=== PATIENT | female | born 1995 | race Caucasian/White ===

== ENCOUNTER → 2017-06-12 | Outpatient (CLI) | payer MEDICAID ==
--- NOTE | 2017-06-12 16:53 | Diagnostic Imaging Report ---
INDICATION: Size and dates. TECHNIQUE: OB sonography performed with transabdominal views. COMPARISON: There is no prior study for comparison. FINDINGS: Single live intrauterine fetus is seen measuring 10 weeks 5 days by crown-rump length with heart rate of 181 beats per minute. Fetus is in variable presentation. Amniotic fluid appears qualitatively normal. The gestational sac shape is normal. heart rate is 181 beats per minute. There is no overt subchorionic bleed. Maternal ovaries could not be visualized. There is no free fluid. IMPRESSION: Single live intrauterine fetus measuring at 10 weeks 5 days in size with sonographic EDC of 01/03/2018. No detectable abnormalities. Recommend followup later in for full anatomical survey. Dictated by: Dictated on workstation # [id number]
== END ==
LOC: RAD 15:26
PROVIDERS: ATTEND Family Medicine
DX: Z34.01 Encounter for supervision of normal first pregnancy, first trimester (principal); Z3A.10 10 weeks gestation of pregnancy
CPT/HCPCS: 76801

== ENCOUNTER → 2017-08-07 | Outpatient (CLI) | payer MEDICAID ==
--- NOTE | 2017-08-07 17:20 | Diagnostic Imaging Report ---
INDICATION: Second trimester , survey. TECHNIQUE: Multiple real-time grayscale images were obtained over the gravid uterus. COMPARISON: 06/12/2017 FINDINGS: A single live intrauterine fetus is seen measuring 19 weeks 2 days in size with heart rate of 156 beats per minute. This is about 4 days larger than expected from original dates but within variation. Sonographic EDC is 12/30/17. The fetus is in transverse presentation. Amniotic fluid appears qualitatively normal. Gestational sac had a normal contour. There is no subchorionic bleed. Placenta is posterior with no evidence of previa. survey including kidneys, bladder, stomach, and intracranial structures are unremarkable. Cord insertion was unremarkable. The four-chamber heart view with three-vessel cord and spine images were not optimal secondary to positioning. Biometrical measurements are as follows: Biparietal 4.5 cm, age 19 weeks 4 days. Head circumference 16.0 cm, age 18 weeks 6 days. Abdominal circumference 14.7 cm, age 20 weeks 0 days. Femur length 2.8 cm, age 18 weeks 3 days. Sonographic estimate age: 19 weeks 2 days. Sonographic estimated date of delivery: 12/30/17. Estimated Weight: 281 gm (+/- 41 gm). LMP percentile: 76%. heart rate: 156 beats per minute. number: 1 of 1. IMPRESSION: Single live intrauterine fetus as described above with normal interval growth compared to the prior study. survey showed no detectable abnormalities although there was some limitation as above, with the four-chamber heart view and three-vessel cord and spine not well seen. Consider limited followup study as clinically warranted. Dictated by: Dictated on workstation # [id number]
== END ==
LOC: RAD 15:27
PROVIDERS: ATTEND Family Medicine
DX: Z36.89 Encounter for other specified antenatal screening (principal); Z3A.19 19 weeks gestation of pregnancy
CPT/HCPCS: 76805

== ENCOUNTER → 2017-10-02 | Outpatient (CLI) | payer MEDICAID ==
--- NOTE | 2017-10-02 18:34 | Diagnostic Imaging Report ---
INDICATION: Followup spine, three-vessel cord, and four-chamber heart. TECHNIQUE: Multiple real-time grayscale images were obtained over the gravid uterus. COMPARISON: 08/07/2017. FINDINGS: There is a single live fetus in a cephalic presentation. Placenta is posterior. heart rate was recorded at 152 beats per minute. Amniotic fluid volume is normal. survey demonstrates four-chamber heart to be unremarkable. There is a three-vessel cord. spine is unremarkable. IMPRESSION: Unremarkable followup obstetrical ultrasound. spine, three-vessel cord, and four-chamber heart are unremarkable on today's exam. Dictated by: Dictated on workstation # [id number]
== END ==
LOC: RAD 13:03
PROVIDERS: ATTEND Family Medicine
DX: Z36.89 Encounter for other specified antenatal screening (principal); Z3A.00 Weeks of gestation of pregnancy not specified
CPT/HCPCS: 76816

== ENCOUNTER → 2017-11-27 | Outpatient (CLI) | payer MEDICAID ==
--- NOTE | 2017-11-27 15:54 | Diagnostic Imaging Report ---
INDICATION: Low fundal height for dates. TECHNIQUE: Multiple real-time grayscale images were obtained over the gravid uterus. COMPARISON: 10/02/2017. FINDINGS: There is a single live fetus in a cephalic presentation. heart rate was recorded at 149 beats per minute. Placenta is posterior. Amniotic fluid volume is normal. No gross abnormality is seen. Biometrical measurements are as follows: Biparietal 8.84 cm, age 35 weeks 6 days. Head circumference 32.02 cm, age 36 weeks 1 days. Abdominal circumference 32.07 cm, age 36 weeks 0 days. Femur length 6.6 cm, age 34 weeks 0 days. Sonographic estimate age: 35 weeks 4 days. Sonographic estimated date of delivery: 12/28/2017. Estimated Weight: 2683 gm (+/- 392 gm). LMP percentile: 71%. heart rate: 149 beats per minute. number: 1 of 1. IMPRESSION: Single live IUP of approximately 35-36 weeks gestational age showing normal interval growth when compared with examination from 10/02/2017. Dictated by: Dictated on workstation # [id number]
== END ==
LOC: RAD 13:48
PROVIDERS: ATTEND Family Medicine
DX: O26.843 Uterine size-date discrepancy, third trimester (principal); Z3A.35 35 weeks gestation of pregnancy
CPT/HCPCS: 76816

== ENCOUNTER 2018-01-02 05:31 | Inpatient (IN) | payer MEDICAID ==
[~2018-01-02] VITALS: Ht 165.1 cm; Wt 58.7 kg
[2018-01-02] VITALS (54 sets, daily range): BP systolic 90–159; BP diastolic 50–86
[2018-01-02] MEDS ORDERED: FLU QUADRIvalent (5+ YOA) 2018-2019 (AFLURIA) 0.5 ML IM ONE (07:15)
[2018-01-02] MEDS ORDERED: fentaNYL INJECTION 100 MCG/2 ML AMP ONE ×2 (07:45→08:32)
[2018-01-02] MEDS ORDERED: MINERAL OIL CONCENTRATE 99.9% 15 ML UDC TOP PRN (07:45)
[2018-01-02] MEDS ORDERED: D5 LR IV SOLUTION 1,000 ML IV ONE (07:46)
[2018-01-02] MEDS ORDERED: LACTATED RINGERS 1,000 ML IV ONE ×2 (07:46→09:08)
[2018-01-02] MEDS ORDERED: fentaNYL INJECTION 100 MCG/2 ML AMP IVP ONE (08:00)
[2018-01-02 08:12] LABS: BASOPHILS % (AUTO) 0 % (0-10); EOSINOPHILS % (AUTO) 0 % (0-10); HEMATOCRIT 39 % (35-52); HEMOGLOBIN 13.4 G/DL (11.5-16.0); LYMPHOCYTES # (AUTO) 2.5 X 10^3 (1.0-4.0); LYMPHOCYTES % (AUTO) 17 % (12-44); MEAN CORPUSCULAR HEMOGLOBIN 31 PG (25-34); MEAN CORPUSCULAR HGB CONC 34 G/DL (32-36); MEAN CORPUSCULAR VOLUME 91 FL (80-99); MEAN PLATELET VOLUME 10.3 FL (7.4-10.4); MONOCYTES # (AUTO) 0.9 X 10^3 (0.0-1.0); MONOCYTES % (AUTO) 6 % (0-12); NEUTROPHILS # (AUTO) 11.2 X 10^3 (1.8-7.8); NEUTROPHILS % (AUTO) 77 % (42-75); PLATELET COUNT 354 10^3/uL (130-400); RED BLOOD COUNT 4.33 10^6/uL (4.35-5.85); RED CELL DISTRIBUTION WIDTH 14.4 % (10.0-14.5); WHITE BLOOD COUNT 14.6 10^3/uL (4.3-11.0)
[2018-01-02] MEDS: VANCOMYCIN INJECTION 1,000 MG in NS (IVPB) 250 ML IV SCH ×2 (08:18→20:10)
[2018-01-02] MEDS ORDERED: BUPIVACAINE 0.25% 30 ML (SENSORCAINE) VIAL ONE (08:32)
[2018-01-02] MEDS ORDERED: SUFENTA 0.6MCG/ML BUPIVA 0.125 100 ML ONE (08:32)
[2018-01-02 08:48] LABS: LYMPHOCYTES % (MANUAL) 11 %; MONOCYTES % (MANUAL) 8 %; NEUTROPHILS % (MANUAL) 81 %; RBC MORPH NORMAL
[2018-01-02] MEDS: D5 LR IV SOLUTION 1,000 ML IV SCH ×2 (08:59→15:55)
[2018-01-02] MEDS: EPIDURAL (SUFENTA 0.6MCG/ML BUPIVA 0.125%) 100 ML BAG EPI SCH ×2 (09:00→15:55)
[2018-01-02] MEDS ORDERED: ONDANSETRON 4 MG/2 ML (SDV) Z0FRAN ONE (09:06)
[2018-01-02] MEDS ORDERED: CATHETER FLUSH 10 ML SYR IV PRN (09:15)
[2018-01-02] MEDS ORDERED: NALOXONE 0.4 MG/ML 1 ML (NARCAN) VIAL IV PRN (09:15)
--- OUTSIDE RECORDS SUMMARY | 2018-01-02 13:30 | XMS REPORT ---
Author Author SERGIO YOMI [facility] Address [address] [place] [address] Care Team Providers Care Electrical And Electronic Assembler Name Role Phone SERGIOCHARITYYOMI Unavailable PROBLEMS Type Condition ICD9-CM Code EWC87-PT Code Onset Dates Condition Status SNOMED Code Problem care, first in third trimester Z34.03 Active 148238023 Problem Major depressive disorder, single episode, unspecified F32.9 Active 72422804 Problem Generalized anxiety disorder F41.1 Active 67072052 Problem GBS bacteriuria R82.71 Active 35503268 ALLERGIES No Information ENCOUNTERS Encounter Location Date Diagnosis [place] [address] [address] Dec, [place] [address] [address]892 Dec, [address] [address] Dec, care, first in third trimester Z34.03 and 38 weeks gestation of Z3A.38 [place] [address] [place] [id number] [place] [address] 24529- 7867 Nov, Third trimester Z34.93 ; Vaginal candidiasis B37.3 ; 37 weeks gestation of Z3A.37 ; Acute vaginitis N76.0 and Infection of other part of genital tract in , third trimester O23.593 [place] [address] [address] 17 Nov, 2017 Third trimester Z34.93 and 36 weeks gestation of Z3A.36 [place] [address] [address] Nov, [place] [address] [place] [id number] [place] [address] 65393- 1940 Oct, Third trimester Z34.93 ; Fundal height low for dates in third trimester O26.843 and 33 weeks gestation of Z3A.33 [place] [address] [place] [id number] [place] [address] 31287- 1559 Oct, Hyperemesis R11.10 [place] [address] [address]- 9761 Oct, Hyperemesis R11.10 [place] [address] [place] [id number] [place] [address] 39540- 7244 Oct, [place] [address] [place] [id number] [place] [address] 19170- 3211 Oct, 30 weeks gestation of Z3A.30 ; care, first in third trimester Z34.03 and Encounter for immunization Z23 [place] [address] [place] [id number] [place] [address] 83640- 4220 Sep, [place] [address] [place] [id number] [place] [address] 36163- 3710 Sep, Second trimester Z34.92 and 26 weeks gestation of Z3A.26 [facility] [address] [place] [id number] [place] [address]0172 Aug, Vaginal itching N89.8 [place] [address] [place] [id number] [place] [address] 44757- 7775 Aug, care, first in second trimester Z34.02 ; 22 weeks gestation of Z3A.22 and Evaluate anatomy not seen on prior sonogram Z04.8 [place] [address] [place] [id number] [place] [address] 62735- 0278 July, Generalized anxiety disorder F41.1 and Major depressive disorder, single episode, unspecified F32.9 [place] [address] [address]- [address] July, care, first in second trimester Z34.02 and 17 weeks gestation of Z3A.17 [place] [address] [place] [id number] [place] [address] 65671- 6305 Jun, Generalized anxiety disorder F41.1 [place] [address] [place] [id number] [place] [address] 01960- 0343 18 Jun, 2017 Second trimester Z34.92 ; 14 weeks gestation of Z3A.14 and Nausea and vomiting during O21.9 [place] [address] [place] [id number] [place] [address] 32784- 9349 Jun, [place] [address] [place] [id number] [place] [address] 42446- 6893 Jun, Generalized anxiety disorder F41.1 and Major depressive disorder, single episode, unspecified F32.9 [place] [address] [place] [id number] [place] [address] 18894- 3288 Jun, Generalized anxiety disorder F41.1 and Major depressive disorder, single episode, unspecified F32.9 [place] [address] [place] [id number] [place] [address] 67730- 6186 Jun, 13 weeks gestation of Z3A.13 ; Itching L29.9 and Encounter for care in second trimester of first Z34.02 [place] [address] [place] [id number] [place] [address] 80362- 5979 Jun, [place] [address] [place] [id number] [place] [address] 64056- 4943 May, Generalized anxiety disorder F41.1 ; Major depressive disorder, single episode, unspecified F32.9 ; Other mental disorders complicating , first trimester O99.341 and Adjustment disorder with mixed anxiety and depressed mood F43.23 [place] [address] [place] [address] 93018- 8422 May, care, first in first trimester Z34.01 ; 10 weeks gestation of Z3A.10 ; Glucosuria R81 and Vaginal candidiasis B37.3 [facility] [address] [id number] [address] Apr, [facility] [address] [facility] [id number] [address] Apr, [facility] [address] [facility] [id number], [place] [address] Apr, Encounter for test Z32.00 [facility] [address] [facility] [id number], [place] [address] Apr, IMMUNIZATIONS No Known Immunizations SOCIAL HISTORY Never Assessed REASON FOR VISIT 1 week f/u, Cervix check -- nasim palafox PLAN OF CARE Activity Details Follow Up 1 Week Reason: Pending Test UA OB DIP (IN HOUSE) VITAL SIGNS Height 66 in 2017-12-16 Weight 129.0 lbs 2017-12-16 Temperature 97.2 degrees Fahrenheit 2017-12-16 Heart Rate 80 bpm 2017-12-16 Respiratory Rate 20 2017-12-16 BMI 20.821 kg/m2 2017-12-16 Blood pressure systolic 110 mmHg 2017-12-16 Blood pressure diastolic 70 mmHg 2017-12-16 MEDICATIONS Medication Instructions Dosage Frequency Start Date End Date Duration Status Clotrimazole-7 1 % Vaginal Once a day 1 application at bedtime 24h Nov, Dec, 7 day(s) Active Ranitidine HCl 150 MG Orally twice a day 1 tablet 12h Oct, 30 day(s) Active Active RESULTS No Results PROCEDURES Procedure Date Ordered Result Body Site URINE-NO MICRO Dec 16, 2017 LAB NOT BILLED BY [facility] Dec 16, 2017 Bacterial Vaginosis In House Dec 16, 2017 INSTRUCTIONS MEDICATIONS ADMINISTERED No Known Medications MEDICAL (GENERAL) HISTORY Type Description Date Surgical History tonsillectomy
--- OUTSIDE RECORDS SUMMARY | 2018-01-02 13:30 | XMS REPORT ---
Author Author SERGIO YOMI [facility] Address [address] [place] [address] Care Team Providers Care Spar Machine Operator Helper Name Role Phone SERGIOCHARITY MORAHANY Unavailable PROBLEMS Type Condition ICD9-CM Code AEC70-XV Code Onset Dates Condition Status SNOMED Code Problem care, first in third trimester Z34.03 Active 636026272 Problem Major depressive disorder, single episode, unspecified F32.9 Active 41303912 Problem Generalized anxiety disorder F41.1 Active 77528997 Problem GBS bacteriuria R82.71 Active 83447633 ALLERGIES No Information ENCOUNTERS Encounter Location Date Diagnosis [place] [address] [place] [id number] [place] [address] Dec, [place] [address] [place] [id number] [place] [address] 06637- 0202 Dec, [place] [address] [place] [id number] [place] [address] 97687- 9561 Nov, Third trimester Z34.93 ; Vaginal candidiasis B37.3 ; 37 weeks gestation of Z3A.37 ; Acute vaginitis N76.0 and Infection of other part of genital tract in , third trimester O23.593 [place] [address] [place] [address] 49336- 6878 17 Nov, 2017 Third trimester Z34.93 and 36 weeks gestation of Z3A.36 [place] [address] [place] [id number] [place] [address] 79333- 7749 Nov, [place] [address] [place] [id number] [place] [address] 80973- 8868 Oct, Third trimester Z34.93 ; Fundal height low for dates in third trimester O26.843 and 33 weeks gestation of Z3A.33 [place] [address] [place] [address] 29217- 4029 Oct, Hyperemesis R11.10 [place] [address] [place] [id number] [place] [address] 81023- 3243 Oct, Hyperemesis R11.10 [place] [address] [place] [id number] [place] [address] 96888- 1087 Oct, [place] [address] [place] [id number] [place] [address] 56006- 5053 Oct, 30 weeks gestation of Z3A.30 ; care, first in third trimester Z34.03 and Encounter for immunization Z23 [place] [address] [place] [id number] [place] [address] 36657- 8765 Sep, [place] [address] [place] [id number] [place] [address] 64839- 6389 Sep, Second trimester Z34.92 and 26 weeks gestation of Z3A.26 [facility] [address] [place] [id number] [place] [address] 57845 -5756 Aug, Vaginal itching N89.8 [place] [address] [place] [id number] [place] [address] 48260- 3900 12 Aug, 2017 care, first in second trimester Z34.02 ; 22 weeks gestation of Z3A.22 and Evaluate anatomy not seen on prior sonogram Z04.8 [place] [address] [place] [id number] [place] [address] 86676- 3090 July, Generalized anxiety disorder F41.1 and Major depressive disorder, single episode, unspecified F32.9 [place] [address] [place] [id number] [place] [address] 79714- 6604 July, care, first in second trimester Z34.02 and 17 weeks gestation of Z3A.17 [place] [address] [address]- 6857 Jun, Generalized anxiety disorder F41.1 [place] [address] [place] [address] 79830- 5486 18 Jun, 2017 Second trimester Z34.92 ; 14 weeks gestation of Z3A.14 and Nausea and vomiting during O21.9 [place] [address] [place] [address] 86724- 1422 17 Jun, 2017 [place] [address] [place] [id number] [place] [address] 19965- 3932 Jun, Generalized anxiety disorder F41.1 and Major depressive disorder, single episode, unspecified F32.9 [place] [address] [place] [id number] [place] [address] 40985- 2056 16 Jun, 2017 Generalized anxiety disorder F41.1 and Major depressive disorder, single episode, unspecified F32.9 [place] [address] [place] [id number] [place] [address] 28990- 1370 12 Jun, 2017 13 weeks gestation of Z3A.13 ; Itching L29.9 and Encounter for care in second trimester of first Z34.02 [place] [address] [place] [id number] [place] [address] 55158- 9670 02 Jun, 2017 [place] [address] [place] [address] 63241- 0373 May, Generalized anxiety disorder F41.1 ; Major depressive disorder, single episode, unspecified F32.9 ; Other mental disorders complicating , first trimester O99.341 and Adjustment disorder with mixed anxiety and depressed mood F43.23 [place] [address] [place] [address] 52327- 7035 May, care, first in first trimester Z34.01 ; 10 weeks gestation of Z3A.10 ; Glucosuria R81 and Vaginal candidiasis B37.3 [facility] [id number] [place] [address] Apr, [place] [address] [place] [id number] [place] [address] 37637093- 1379 Apr, [facility] [address] [facility] [id number] [address] Apr, Encounter for test Z32.00 [facility] [address] [facility] [id number] [place] [address] Apr, IMMUNIZATIONS No Known Immunizations SOCIAL HISTORY Never Assessed REASON FOR VISIT US results PLAN OF CARE VITAL SIGNS MEDICATIONS Unknown Medications RESULTS No Results PROCEDURES No Known procedures INSTRUCTIONS MEDICATIONS ADMINISTERED No Known Medications MEDICAL (GENERAL) HISTORY Type Description Date Surgical History tonsillectomy
--- OUTSIDE RECORDS SUMMARY | 2018-01-02 13:30 | XMS REPORT ---
Author Author SERGIO YOMI [facility] Address [address] [place] [address] Care Team Providers Care Bindery Machine Operator Name Role Phone SERGIOCHARITY MORAHANY Unavailable PROBLEMS Type Condition ICD9-CM Code FAT63-BV Code Onset Dates Condition Status SNOMED Code Problem care, first in third trimester Z34.03 Active 336688705 Problem Major depressive disorder, single episode, unspecified F32.9 Active 71152759 Problem Generalized anxiety disorder F41.1 Active 48394602 Problem GBS bacteriuria R82.71 Active 16174434 ALLERGIES Substance Reaction Event Type Date Status Sulfamethoxazole-Trimethoprim Hives Drug Allergy Nov, Active Penicillin V Potassium Unknown Drug Allergy Nov, Active ENCOUNTERS Encounter Location Date Diagnosis [place] [address] [place] [address] 60542- 1576 Dec, [place] [address] [place] [id number] [place] [address] 94413- 6873 Dec, care, first in third trimester Z34.03 [place] [address] [place] [address] 27199- 1333 Nov, Third trimester Z34.93 ; Vaginal candidiasis B37.3 ; 37 weeks gestation of Z3A.37 ; Acute vaginitis N76.0 and Infection of other part of genital tract in , third trimester O23.593 [place] [address] [place] [address] 04136- 0704 Nov, Third trimester Z34.93 and 36 weeks gestation of Z3A.36 [place] [address] [place] [id number] [place] [address] 44195- 3393 Nov, [place] [address] [place] [id number] [place] [address] 45028- 2162 Oct, Third trimester Z34.93 ; Fundal height low for dates in third trimester O26.843 and 33 weeks gestation of Z3A.33 [place] [address] [place] [id number] [place] [address] 48817- 3804 Oct, Hyperemesis R11.10 [place] [address] [place] [id number] [place] [address] 97060- 6049 Oct, Hyperemesis R11.10 [place] [address] [place] [id number] [place] [address] 59142- 9894 Oct, [place] [address] [place] [id number] [place] [address] 67300- 2521 Oct, 30 weeks gestation of Z3A.30 ; care, first in third trimester Z34.03 and Encounter for immunization Z23 [place] [address] [place] [id number] [place] [address] 78321- 9332 Sep, [place] [address] [place] [id number] [place] [address] 51810- 8504 Sep, Second trimester Z34.92 and 26 weeks gestation of Z3A.26 [facility] [address] [place] [id number] [place] [address] 65005 -2402 Aug, Vaginal itching N89.8 [place] [address] [place] [id number] [place] [address] 34607- 5296 Aug, care, first in second trimester Z34.02 ; 22 weeks gestation of Z3A.22 and Evaluate anatomy not seen on prior sonogram Z04.8 [place] [address] [place] [id number] [place] [address] 19249- 6203 July, Generalized anxiety disorder F41.1 and Major depressive disorder, single episode, unspecified F32.9 [place] [address] [place] [id number] [place] [address] 56551- 8662 July, care, first in second trimester Z34.02 and 17 weeks gestation of Z3A.17 [place] [address] [address]- 0079 25 Jun, 2017 Generalized anxiety disorder F41.1 [place] [address] [place] [address] 77495- 0357 18 Jun, 2017 Second trimester Z34.92 ; 14 weeks gestation of Z3A.14 and Nausea and vomiting during O21.9 [place] [address] [place] [id number] [place] [address] 65766- 6092 17 Jun, 2017 [place] [address] [place] [id number] [place] [address] 15590- 9970 17 Jun, 2017 Generalized anxiety disorder F41.1 and Major depressive disorder, single episode, unspecified F32.9 [place] [address] [place] [id number] [place] [address] 61277- 1655 16 Jun, 2017 Generalized anxiety disorder F41.1 and Major depressive disorder, single episode, unspecified F32.9 [place] [address] [place] [id number] [place] [address] 73442- 5287 12 Jun, 2017 13 weeks gestation of Z3A.13 ; Itching L29.9 and Encounter for care in second trimester of first Z34.02 [place] [address] [place] [address] 57437- 0245 02 Jun, 2017 [place] [address] [place] [address] 96535- 6350 May, Generalized anxiety disorder F41.1 ; Major depressive disorder, single episode, unspecified F32.9 ; Other mental disorders complicating , first trimester O99.341 and Adjustment disorder with mixed anxiety and depressed mood F43.[address] [place] [address] 02287- 3052 May, care, first in first trimester Z34.01 ; 10 weeks gestation of Z3A.10 ; Glucosuria R81 and Vaginal candidiasis B37.3 [facility] [address] [place] [id number] [address] Apr, [facility] [address] [facility] [id number] [address]- 5794 Apr, [facility] [address] [facility] [id number] [address]- 5067 Apr, Encounter for test Z32.00 [facility] [address] [id number] [address]- 5684 Apr, IMMUNIZATIONS No Known Immunizations SOCIAL HISTORY Never Assessed REASON FOR VISIT OB 2wk f/u--tcuppettRN PLAN OF CARE Activity Details Follow Up 1 Week Reason: VITAL SIGNS Height 66 in 2017-12-08 Weight 130.5 lbs 2017-12-08 Temperature 98.3 degrees Fahrenheit 2017-12-08 Heart Rate 90 bpm 2017-12-08 Respiratory Rate 18 2017-12-08 BMI 21.063 kg/m2 2017-12-08 Blood pressure systolic 100 mmHg 2017-12-08 Blood pressure diastolic 64 mmHg 2017-12-08 MEDICATIONS Medication Instructions Dosage Frequency Start Date End Date Duration Status Active BusPIRone HCl 5 mg Orally 3 times a day 1 tablet 8h July, 30 days Not-Taking Ranitidine HCl 150 MG Orally twice a day 1 tablet 12h Oct, 30 day(s) Active RESULTS Name Result Date Reference Range UA OB DIP (IN HOUSE) 2017-12-08 Glucose neg Protein neg PROCEDURES Procedure Date Ordered Result Body Site URINE-NO MICRO Dec 08, 2017 INSTRUCTIONS MEDICATIONS ADMINISTERED No Known Medications MEDICAL (GENERAL) HISTORY Type Description Date Surgical History tonsillectomy
--- OUTSIDE RECORDS SUMMARY | 2018-01-02 13:30 | XMS REPORT ---
Author Author SERGIO YOMI [facility] Address [address] [place] [address] Care Team Providers Care Hand Spray Operator Name Role Phone SERGIOCHARITY MORAHANY Unavailable PROBLEMS Type Condition ICD9-CM Code RMJ10-PM Code Onset Dates Condition Status SNOMED Code Problem care, first in third trimester Z34.03 Active 913482219 Problem Major depressive disorder, single episode, unspecified F32.9 Active 86772587 Problem Generalized anxiety disorder F41.1 Active 49808014 Problem GBS bacteriuria R82.71 Active 40091565 ALLERGIES No Information ENCOUNTERS Encounter Location Date Diagnosis [place] [id number] [place] [address] 25040- 5566 Dec, [place] [id number] [place] [address] 23403- 7143 Dec, [place] [id number] [place] [address] 95743- 7171 Nov, Third trimester Z34.93 ; Vaginal candidiasis B37.3 ; 37 weeks gestation of Z3A.37 ; Acute vaginitis N76.0 and Infection of other part of genital tract in , third trimester O23.593 [place] [address] [place] [address] 15276- 1010 17 Nov, 2017 Third trimester Z34.93 and 36 weeks gestation of Z3A.36 [place] [id number] [place] [address] 73236- 8437 Nov, [place] [id number] [place] [address] 52182- 7048 Oct, Third trimester Z34.93 ; Fundal height low for dates in third trimester O26.843 and 33 weeks gestation of Z3A.33 [place] [address] [place] [address] 16521- 9654 Oct, Hyperemesis R11.10 [place] [id number] [place] [address] 54665- 2719 Oct, Hyperemesis R11.10 [place] [id number] [place] [address] 98616- 5239 Oct, [place] [id number] [place] [address] 00424- 8229 Oct, 30 weeks gestation of Z3A.30 ; care, first in third trimester Z34.03 and Encounter for immunization Z23 [place] [id number] [place] [address] 33785- 3268 Sep, [place] [id number] [place] [address] 36639- 4396 Sep, Second trimester Z34.92 and 26 weeks gestation of Z3A.26 [facility] [id number] [place] [address] 26194 -7537 Aug, Vaginal itching N89.8 [place] [id number] [place] [address] 08197- 4274 12 Aug, 2017 care, first in second trimester Z34.02 ; 22 weeks gestation of Z3A.22 and Evaluate anatomy not seen on prior sonogram Z04.8 [place] [id number] [place] [address] 57982- 0982 July, Generalized anxiety disorder F41.1 and Major depressive disorder, single episode, unspecified F32.9 [place] [id number] [place] [address] 96383- 0276 July, care, first in second trimester Z34.02 and 17 weeks gestation of Z3A.17 [place] [address] 02868- 6813 Jun, Generalized anxiety disorder F41.1 [place] [address] [place] [address] 40589- 1320 18 Jun, 2017 Second trimester Z34.92 ; 14 weeks gestation of Z3A.14 and Nausea and vomiting during O21.9 [place] [address] [place] [address] 21103- 1781 17 Jun, 2017 [place] [id number] [place] [address] 34538- 6648 Jun, Generalized anxiety disorder F41.1 and Major depressive disorder, single episode, unspecified F32.9 [place] [id number] [place] [address] 63677- 0785 16 Jun, 2017 Generalized anxiety disorder F41.1 and Major depressive disorder, single episode, unspecified F32.9 [place] [id number] [place] [address] 17006- 5263 12 Jun, 2017 13 weeks gestation of Z3A.13 ; Itching L29.9 and Encounter for care in second trimester of first Z34.02 [place] [id number] [place] [address] 60376- 4147 02 Jun, 2017 [place] [address] [place] [address] 12909- 8435 May, Generalized anxiety disorder F41.1 ; Major depressive disorder, single episode, unspecified F32.9 ; Other mental disorders complicating , first trimester O99.341 and Adjustment disorder with mixed anxiety and depressed mood F43.23 [place] [address] [place] [address] 05322- 4947 May, care, first in first trimester Z34.01 ; 10 weeks gestation of Z3A.10 ; Glucosuria R81 and Vaginal candidiasis B37.3 [facility] [id number] [place] [address] Apr, [place] [id number] [place] [address] 60867- 9526 Apr, [facility] [address] [facility] [id number] [address] 2593 Apr, Encounter for test Z32.00 [facility] [address] [facility] [id number] [place] [address]- 6945 Apr, IMMUNIZATIONS No Known Immunizations SOCIAL HISTORY Never Assessed REASON FOR VISIT OB 2wk f/u-awoods PLAN OF CARE Activity Details Follow Up 2 Weeks, 2 Weeks Reason: VITAL SIGNS Height 66 in 2017-11-18 Weight 129.6 lbs 2017-11-18 Temperature 99.6 degrees Fahrenheit 2017-11-18 Heart Rate 110 bpm 2017-11-18 Respiratory Rate 20 2017-11-18 BMI 20.918 kg/m2 2017-11-18 Blood pressure systolic 106 mmHg 2017-11-18 Blood pressure diastolic 64 mmHg 2017-11-18 MEDICATIONS Medication Instructions Dosage Frequency Start Date End Date Duration Status Active Ranitidine HCl 150 MG Orally twice a day 1 tablet 12h Oct, 30 day(s) Active BusPIRone HCl 5 mg Orally 3 times a day 1 tablet 8h July, 30 days Not-Taking RESULTS Name Result Date Reference Range UA OB DIP (IN HOUSE) 2017-11-18 Glucose neg Protein neg Ultrasound : OB, Follow-up 2017-11-27 PROCEDURES Procedure Date Ordered Result Body Site URINE-NO MICRO Nov 18, 2017 INSTRUCTIONS MEDICATIONS ADMINISTERED No Known Medications MEDICAL (GENERAL) HISTORY Type Description Date Surgical History tonsillectomy
--- OUTSIDE RECORDS SUMMARY | 2018-01-02 13:31 | XMS REPORT ---
Author Author SERGIO YOMI [facility] Address [address] [place] [address] Care Team Providers Care Cooperative Manager Name Role Phone SERGIOCHARITYYOMI Unavailable PROBLEMS Type Condition ICD9-CM Code PZG63-ZS Code Onset Dates Condition Status SNOMED Code Problem care, first in third trimester Z34.03 Active 056921417 Problem Major depressive disorder, single episode, unspecified F32.9 Active 24467381 Problem Generalized anxiety disorder F41.1 Active 96137690 Problem GBS bacteriuria R82.71 Active 13113615 ALLERGIES No Information ENCOUNTERS Encounter Location Date Diagnosis [place] [id number] [place] [address] 33261- 3042 Dec, [place] [id number] [place] [address] 31816- 8690 Dec, [place] [id number] [place] [address] 86914- 6860 Nov, [place] [id number] [place] [address] 04431- 5339 Nov, Third trimester Z34.93 and 36 weeks gestation of Z3A.36 [place] [id number] [place] [address] 29411- 7798 Nov, [place] [id number] [place] [address] 34845- 5680 Oct, Third trimester Z34.93 ; Fundal height low for dates in third trimester O26.843 and 33 weeks gestation of Z3A.33 [place] [id number] [place] [address] 19786- 4937 Oct, Hyperemesis R11.10 [place] [address] [address] [id number] [address] 5141 Oct, Hyperemesis R11.10 [place] [id number] [place] [address] 27702- 7192 Oct, [place] [id number] [place] [address] 57457- 3767 Oct, 30 weeks gestation of Z3A.30 ; care, first in third trimester Z34.03 and Encounter for immunization Z23 [place] [id number] [place] [address] 68631- 9558 Sep, [place] [id number] [place] [address] 47938- 1860 Sep, Second trimester Z34.92 and 26 weeks gestation of Z3A.26 [facility] [id number] [place] [address] 60085 -3358 Aug, Vaginal itching N89.8 [place] [id number] [place] [address] 53198- 2308 12 Aug, 2017 care, first in second trimester Z34.02 ; 22 weeks gestation of Z3A.22 and Evaluate anatomy not seen on prior sonogram Z04.8 [place] [id number] [place] [address] 48372- 2534 July, Generalized anxiety disorder F41.1 and Major depressive disorder, single episode, unspecified F32.9 [place] [id number] [place] [address] 26731- 3207 July, care, first in second trimester Z34.02 and 17 weeks gestation of Z3A.17 [place] [id number] [place] [address] 50216- 1293 Jun, Generalized anxiety disorder F41.1 [place] [address] [place] [address] 50584- 0537 Jun, Second trimester Z34.92 ; 14 weeks gestation of Z3A.14 and Nausea and vomiting during O21.9 [place] [address] [place] [address] 66362- 4311 Jun, [place] [id number] [place] [address] 33196- 4029 Jun, Generalized anxiety disorder F41.1 and Major depressive disorder, single episode, unspecified F32.9 [place] [id number] [place] [address] 72541- 2575 Jun, Generalized anxiety disorder F41.1 and Major depressive disorder, single episode, unspecified F32.9 [place] [id number] [place] [address] 17015- 9470 Jun, 13 weeks gestation of Z3A.13 ; Itching L29.9 and Encounter for care in second trimester of first Z34.02 [place] [id number] [place] [address] 69953- 9564 Jun, [place] [id number] [place] [address] 61503- 8225 May, Generalized anxiety disorder F41.1 ; Major depressive disorder, single episode, unspecified F32.9 ; Other mental disorders complicating , first trimester O99.341 and Adjustment disorder with mixed anxiety and depressed mood F43.23 [place] [id number] [place] [address] 33227- 1592 May, care, first in first trimester Z34.01 ; 10 weeks gestation of Z3A.10 ; Glucosuria R81 and Vaginal candidiasis B37.3 [facility] [address] [place] [id number] [place] [address] Apr, [place] [id number] [place] [address] 75856- 0361 Apr, [place] [id number] [place] [address] 90860- 5552 Apr, Encounter for test Z32.00 [facility] [address] [facility] [id number] [place] [address]- 5029 16 Apr, 2017 IMMUNIZATIONS No Known Immunizations SOCIAL HISTORY Never Assessed REASON FOR VISIT Requests return call PLAN OF CARE VITAL SIGNS MEDICATIONS Medication Instructions Dosage Frequency Start Date End Date Duration Status Ranitidine HCl 150 MG Orally twice a day 1 tablet 12h Oct, 30 day(s) Active RESULTS No Results PROCEDURES No Known procedures INSTRUCTIONS MEDICATIONS ADMINISTERED No Known Medications MEDICAL (GENERAL) HISTORY Type Description Date Surgical History tonsillectomy
--- OUTSIDE RECORDS SUMMARY | 2018-01-02 13:31 | XMS REPORT ---
Author Author SERGIO YOMI [facility] Address [address] [place] [address] Care Team Providers Care Insurance Territory Manager Name Role Phone SERGIOCHARITYYOMI Unavailable PROBLEMS Type Condition ICD9-CM Code FNY33-HC Code Onset Dates Condition Status SNOMED Code Problem care, first in third trimester Z34.03 Active 023143439 Problem Major depressive disorder, single episode, unspecified F32.9 Active 43484687 Problem Generalized anxiety disorder F41.1 Active 53321686 Problem GBS bacteriuria R82.71 Active 07967541 ALLERGIES No Information ENCOUNTERS Encounter Location Date Diagnosis [place] [id number] [place] [address] 57083- 8712 Dec, [place] [id number] [place] [address] 12728- 1872 Dec, [place] [id number] [place] [address] 20400- 9359 Nov, [place] [id number] [place] [address] 54854- 7371 Nov, Third trimester Z34.93 and 36 weeks gestation of Z3A.36 [place] [id number] [place] [address] 02864- 9431 Nov, [place] [id number] [place] [address] 44567- 7603 Oct, Third trimester Z34.93 ; Fundal height low for dates in third trimester O26.843 and 33 weeks gestation of Z3A.33 [place] [id number] [place] [address] 01994- 3397 Oct, Hyperemesis R11.10 [place] [id number] [address]- 5425 Oct, Hyperemesis R11.10 [place] [id number] [place] [address] 91382- 9722 Oct, [place] [id number] [place] [address] 02859- 1758 Oct, 30 weeks gestation of Z3A.30 ; care, first in third trimester Z34.03 and Encounter for immunization Z23 [place] [id number] [place] [address] 68180- 6830 Sep, [place] [id number] [place] [address] 78770- 0013 Sep, Second trimester Z34.92 and 26 weeks gestation of Z3A.26 [facility] [id number] [place] [address] 22945 -4013 Aug, Vaginal itching N89.8 [place] [id number] [place] [address] 32653- 3806 12 Aug, 2017 care, first in second trimester Z34.02 ; 22 weeks gestation of Z3A.22 and Evaluate anatomy not seen on prior sonogram Z04.8 [place] [id number] [place] [address] 77127- 6257 July, Generalized anxiety disorder F41.1 and Major depressive disorder, single episode, unspecified F32.9 [place] [id number] [place] [address] 26312- 0595 July, care, first in second trimester Z34.02 and 17 weeks gestation of Z3A.17 [place] [id number] [place] [address] 48569- 2315 Jun, Generalized anxiety disorder F41.1 [place] [address] [place] [address] 28451- 6603 Jun, Second trimester Z34.92 ; 14 weeks gestation of Z3A.14 and Nausea and vomiting during O21.9 [place] [address] [place] [address] 53699- 5187 Jun, [place] [id number] [place] [address] 63408- 5132 Jun, Generalized anxiety disorder F41.1 and Major depressive disorder, single episode, unspecified F32.9 [place] [id number] [place] [address] 90361- 4120 Jun, Generalized anxiety disorder F41.1 and Major depressive disorder, single episode, unspecified F32.9 [place] [id number] [place] [address] 37292- 0416 Jun, 13 weeks gestation of Z3A.13 ; Itching L29.9 and Encounter for care in second trimester of first Z34.02 [place] [id number] [place] [address] 78318- 8660 Jun, [place] [id number] [place] [address] 84707- 0107 May, Generalized anxiety disorder F41.1 ; Major depressive disorder, single episode, unspecified F32.9 ; Other mental disorders complicating , first trimester O99.341 and Adjustment disorder with mixed anxiety and depressed mood F43.23 [place] [id number] [place] [address] 99836- 0217 May, care, first in first trimester Z34.01 ; 10 weeks gestation of Z3A.10 ; Glucosuria R81 and Vaginal candidiasis B37.3 [facility] [address] [place] [id number] [place] [address]886 Apr, [place] [id number] [place] [address] 47731- 8534 Apr, [place] [id number] [place] [address] 56085- 0029 Apr, Encounter for test Z32.00 [facility] [address] [facility] [id number] [address]- 5761 16 Apr, 2017 IMMUNIZATIONS No Known Immunizations SOCIAL HISTORY Never Assessed REASON FOR VISIT PLAN OF CARE VITAL SIGNS MEDICATIONS Unknown Medications RESULTS No Results PROCEDURES Procedure Date Ordered Result Body Site LAB NOT BILLED BY [facility] Nov 12, 2017 MICKIE GRULLON* Nov 12, 2017 INSTRUCTIONS MEDICATIONS ADMINISTERED No Known Medications MEDICAL (GENERAL) HISTORY Type Description Date Surgical History tonsillectomy
--- OUTSIDE RECORDS SUMMARY | 2018-01-02 13:31 | XMS REPORT ---
Author Author SERGIO YOMI [facility] Address [address] [place] [address] Care Team Providers Care Masking Machine Operator Name Role Phone SERGIOCHARIYTYOMI Unavailable PROBLEMS Type Condition ICD9-CM Code OZI32-MJ Code Onset Dates Condition Status SNOMED Code Problem care, first in third trimester Z34.03 Active 722066347 Problem Major depressive disorder, single episode, unspecified F32.9 Active 39089732 Problem Generalized anxiety disorder F41.1 Active 12927675 Problem GBS bacteriuria R82.71 Active 69216691 ALLERGIES Substance Reaction Event Type Date Status Sulfamethoxazole-Trimethoprim Hives Drug Allergy Oct, Active Penicillin V Potassium Unknown Drug Allergy Oct, Active ENCOUNTERS Encounter Location Date Diagnosis [place] [address] [place] [address] 30187- 5264 Dec, [place] [id number] [place] [address] 71015- 5584 Dec, [place] [address] [place] [address] 22796- 5589 Nov, [place] [id number] [place] [address] 20075- 0194 Nov, [place] [id number] [place] [address] 43195- 1506 Oct, Third trimester Z34.93 ; Fundal height low for dates in third trimester O26.843 and 33 weeks gestation of Z3A.33 [place] [id number] [place] [address] 93448- 4439 Oct, Hyperemesis R11.10 [place] [id number] [place] [address] 94762- 2880 Oct, Hyperemesis R11.10 [facility] [id number] [place] [address] 70737- 7851 Oct, [place] [id number] [place] [address] 99818- 9462 Oct, 30 weeks gestation of Z3A.30 ; care, first in third trimester Z34.03 and Encounter for immunization Z23 [place] [address] 88526- 0343 Sep, [place] [address] 38628- 8023 Sep, Second trimester Z34.92 and 26 weeks gestation of Z3A.26 [facility] [id number] [place] [address] 23881 -8636 Aug, Vaginal itching N89.8 [place] [id number] [place] [address] 66173- 5404 Aug, care, first in second trimester Z34.02 ; 22 weeks gestation of Z3A.22 and Evaluate anatomy not seen on prior sonogram Z04.8 [place] [id number] [place] [address] 77115- 9406 July, Generalized anxiety disorder F41.1 and Major depressive disorder, single episode, unspecified F32.9 [place] [id number] [place] [address] 59277- 8946 July, care, first in second trimester Z34.02 and 17 weeks gestation of Z3A.17 [place] [id number] [place] [address] 81263- 2007 Jun, Generalized anxiety disorder F41.1 [place] [id number] [place] [address] 84148- 9567 Jun, Second trimester Z34.92 ; 14 weeks gestation of Z3A.14 and Nausea and vomiting during O21.9 [place] [address] [address]- 1586 Jun, [place] [id number] [place] [address] 10921- 7150 Jun, Generalized anxiety disorder F41.1 and Major depressive disorder, single episode, unspecified F32.9 [place] [address] [place] [address] 74843- 4824 Jun, Generalized anxiety disorder F41.1 and Major depressive disorder, single episode, unspecified F32.9 [place] [address] [place] [address] 89224- 8184 12 Jun, 2017 13 weeks gestation of Z3A.13 ; Itching L29.9 and Encounter for care in second trimester of first Z34.02 [place] [address] [place] [address] 97595- 3292 Jun, [place] [id number] [place] [address] 11838- 2933 May, Generalized anxiety disorder F41.1 ; Major depressive disorder, single episode, unspecified F32.9 ; Other mental disorders complicating , first trimester O99.341 and Adjustment disorder with mixed anxiety and depressed mood F43.23 [place] [address] [place] [address] 47947- 9968 May, care, first in first trimester Z34.01 ; 10 weeks gestation of Z3A.10 ; Glucosuria R81 and Vaginal candidiasis B37.3 [facility] [id number] [place] [address] Apr, [place] [address] [place] [address] 64238- 7724 Apr, [place] [address] [place] [address] 12417- 0022 Apr, Encounter for test Z32.00 [place] [address] [place] [id number] [address]- 7120 16 Apr, 2017 IMMUNIZATIONS Vaccine Route Administration Date Status TDAP (BOOSTRIX) IM Intramuscular Oct 27, 2017 Administered SOCIAL HISTORY Never Assessed REASON FOR VISIT OB 2wk f/u-----DBennettRN PLAN OF CARE Activity Details Follow Up 2 Weeks, 2 Weeks Reason: VITAL SIGNS Height 66 in 2017-10-27 Weight 130.7 lbs 2017-10-27 Temperature 98.1 degrees Fahrenheit 2017-10-27 Heart Rate 100 bpm 2017-10-27 Respiratory Rate 20 2017-10-27 BMI 21.096 kg/m2 2017-10-27 Blood pressure systolic 110 mmHg 2017-10-27 Blood pressure diastolic 60 mmHg 2017-10-27 MEDICATIONS Medication Instructions Dosage Frequency Start Date End Date Duration Status Active BusPIRone HCl 5 mg Orally 3 times a day 1 tablet 8h July, 30 days Not-Taking RESULTS Name Result Date Reference Range UA OB DIP (IN HOUSE) 2017-10-27 Glucose neg Protein trace PROCEDURES Procedure Date Ordered Result Body Site URINE-NO MICRO Oct 27, 2017 TDAP (BOOSTRIX) Oct 27, 2017 SINGLE IMMUNIZATION ADMIN Oct 27, 2017 INSTRUCTIONS MEDICATIONS ADMINISTERED No Known Medications MEDICAL (GENERAL) HISTORY Type Description Date Surgical History tonsillectomy
--- OUTSIDE RECORDS SUMMARY | 2018-01-02 13:31 | XMS REPORT ---
Author Author SERGIO YOMI [facility] Address [address] [place] [address] Care Team Providers Care Weeder Name Role Phone SERGIOCHARITY MORAHANY Unavailable PROBLEMS Type Condition ICD9-CM Code FKI48-YU Code Onset Dates Condition Status SNOMED Code Problem care, first in third trimester Z34.03 Active 522861573 Problem Major depressive disorder, single episode, unspecified F32.9 Active 79631215 Problem Generalized anxiety disorder F41.1 Active 15276402 Problem GBS bacteriuria R82.71 Active 37533523 ALLERGIES No Information ENCOUNTERS Encounter Location Date Diagnosis [place] [id number] 26921- [address] Dec, [facility] [address] [place] [id number] [place] [address] 59620- 9608 Dec, [facility] [address] 86449- 1704 Nov, [facility] [address] [place] [address] [id number] Nov, [place] [address] 97709- 1011 Nov, [facility] [address] [id number] [place] [address] 82476- 2610 Oct, Third trimester Z34.93 ; Fundal height low for dates in third trimester O26.843 and 33 weeks gestation of Z3A.33 [facility] [id number] [place] [address] 79251- 1643 Oct, Hyperemesis R11.10 [place] [address] 96384- 7409 Oct, Hyperemesis R11.10 [facility] [id number] [place] [address] 50556- 7612 Oct, [place] [address] [id number] [place] [address] 32992- 4199 Oct, 30 weeks gestation of Z3A.30 ; care, first in third trimester Z34.03 and Encounter for immunization Z23 [place] [address] [address] [id number] [place] [address] 54271- 2590 Sep, [place] [address] [id number] [place] [address] 57970- 1688 Sep, Second trimester Z34.92 and 26 weeks gestation of Z3A.26 [facility] [id number] [place] [address] 69122 -4025 Aug, Vaginal itching N89.8 [place] [address] [id number] [place] [address] 20799- 1340 Aug, care, first in second trimester Z34.02 ; 22 weeks gestation of Z3A.22 and Evaluate anatomy not seen on prior sonogram Z04.8 [place] [id number] [place] [address] 48585- 3366 July, Generalized anxiety disorder F41.1 and Major depressive disorder, single episode, unspecified F32.9 [place] [address] [id number] [place] [address] 27287- 0292 July, care, first in second trimester Z34.02 and 17 weeks gestation of Z3A.17 [place] [address] [id number] [place] [address] 70123- 7581 Jun, Generalized anxiety disorder F41.1 [place] [address] [address] [id number] [place] [address] 97923- 9920 Jun, Second trimester Z34.92 ; 14 weeks gestation of Z3A.14 and Nausea and vomiting during O21.9 [place] [address] [address] 9574 Jun, [place] [address] [address] [id number] [place] [address] 10262- 7578 Jun, Generalized anxiety disorder F41.1 and Major depressive disorder, single episode, unspecified F32.9 [place] [address] [place] [address] 58489- 0952 Jun, Generalized anxiety disorder F41.1 and Major depressive disorder, single episode, unspecified F32.9 [place] [address] [id number] [place] [address] 55843- 6923 12 Jun, 2017 13 weeks gestation of Z3A.13 ; Itching L29.9 and Encounter for care in second trimester of first Z34.02 [place] [address] [place] [address] 09185- 2541 Jun, [place] [address] [address] [id number] [place] [address] 10049- 0409 May, Generalized anxiety disorder F41.1 ; Major depressive disorder, single episode, unspecified F32.9 ; Other mental disorders complicating , first trimester O99.341 and Adjustment disorder with mixed anxiety and depressed mood F43.23 [place] [address] [place] [address] 97237- 1527 May, care, first in first trimester Z34.01 ; 10 weeks gestation of Z3A.10 ; Glucosuria R81 and Vaginal candidiasis B37.3 [facility] [id number] [place] [address] Apr, [place] [address] [address] [id number] [place] [address] 34410- 9730 Apr, [place] [address] [place] [address] 76119- 3467 Apr, Encounter for test Z32.00 [place] [address] [place] [address] [id number] [address]- 3279 16 Apr, 2017 IMMUNIZATIONS No Known Immunizations SOCIAL HISTORY Never Assessed REASON FOR VISIT FYI PLAN OF CARE VITAL SIGNS MEDICATIONS Unknown Medications RESULTS No Results PROCEDURES No Known procedures INSTRUCTIONS MEDICATIONS ADMINISTERED No Known Medications MEDICAL (GENERAL) HISTORY Type Description Date Surgical History tonsillectomy
--- OUTSIDE RECORDS SUMMARY | 2018-01-02 13:31 | XMS REPORT ---
Author Author ANCA EUCEDA [facility] Address [address] [place] [address] Care Team Providers Care Military Professional Name Role Phone ANCA EUCEDA Unavailable PROBLEMS Type Condition ICD9-CM Code OFD59-ZE Code Onset Dates Condition Status SNOMED Code Problem care, first in third trimester Z34.03 Active 387162428 Problem Major depressive disorder, single episode, unspecified F32.9 Active 50657996 Problem Generalized anxiety disorder F41.1 Active 35041711 Problem GBS bacteriuria R82.71 Active 92172840 ALLERGIES Substance Reaction Event Type Date Status Sulfamethoxazole-Trimethoprim Hives Drug Allergy Aug, Active Penicillin V Potassium Unknown Drug Allergy Aug, Active ENCOUNTERS Encounter Location Date Diagnosis [facility] [place] [address] [place] [address] 63985- 9737 Dec, [facility] [place] [address] [id number] [place] [address] 64204- 3972 Dec, [facility] [place] [id number] [place] [address] 88247- 7731 Nov, [facility] [address] [place] [address] [id number] Nov, [facility] [place] [id number] [place] [address] 51863- 6160 Oct, Third trimester Z34.93 and Fundal height low for dates in third trimester O26.843 [facility] [place] [id number] [place] [address] 51980- 4999 Oct, Hyperemesis R11.10 [facility] [place] [id number] [place] [address] 34811- 8750 Oct, Hyperemesis R11.10 [place] [id number] [place] [address] 69340- 2789 Oct, [place] [address] 22739- 6829 Oct, 30 weeks gestation of Z3A.30 ; care, first in third trimester Z34.03 and Encounter for immunization Z23 [address] 37895- 1579 Sep, [place] [address] 72720- 9315 Sep, Second trimester Z34.92 and 26 weeks gestation of Z3A.26 [facility] [address] 96262 [address]7506 Aug, Vaginal itching N89.[address] 40151- 3505 Aug, care, first in second trimester Z34.02 ; 22 weeks gestation of Z3A.22 and Evaluate anatomy not seen on prior sonogram Z04.[address] 31719- 5430 July, Generalized anxiety disorder F41.1 and Major depressive disorder, single episode, unspecified F32.9 [place] [id number] [place] [address] 21712- 2869 July, care, first in second trimester Z34.02 and 17 weeks gestation of Z3A.17 [place] [id number] [place] [address] 74940- 5283 Jun, Generalized anxiety disorder F41.[address] 65536- 2214 Jun, Second trimester Z34.92 ; 14 weeks gestation of Z3A.14 and Nausea and vomiting during O21.[address] [place] [address]- 4632 Jun, [place] [address] [place] [address] 07990- 3116 Jun, Generalized anxiety disorder F41.1 and Major depressive disorder, single episode, unspecified F32.9 [place] [address] [place] [address] 61028- 1863 Jun, Generalized anxiety disorder F41.1 and Major depressive disorder, single episode, unspecified F32.9 [place] [address] [place] [address] 28587- 3003 Jun, 13 weeks gestation of Z3A.13 ; Itching L29.9 and Encounter for care in second trimester of first Z34.02 [place] [address] [place] [address] 29635- 1945 Jun, [place] [address] [place] [id number] [place] [address] 38052- 6261 May, Generalized anxiety disorder F41.1 ; Major depressive disorder, single episode, unspecified F32.9 ; Other mental disorders complicating , first trimester O99.341 and Adjustment disorder with mixed anxiety and depressed mood F43.23 [place] [address] [place] [address] 39953- 0530 May, care, first in first trimester Z34.01 ; 10 weeks gestation of Z3A.10 ; Glucosuria R81 and Vaginal candidiasis B37.3 [facility] [address] [id number] [address] Apr, [place] [address] [place] [address] 97317- 6369 Apr, [place] [address] [place] [address] 55074- 3632 Apr, Encounter for test Z32.00 [place] [address] [place] [id number] [place] [address] 05095- 3219 Apr, IMMUNIZATIONS No Known Immunizations SOCIAL HISTORY Never Assessed REASON FOR VISIT Vaginal itching started a few weeks ago- went away for awhile and has came back. SABINE Mead- 24 wk preg PLAN OF CARE Activity Details Follow Up w/ Dr. Christopher Reason:vaginal itching VITAL SIGNS Height 66 in 2017-09-20 Weight 123.4 lbs 2017-09-20 Temperature 98.4 degrees Fahrenheit 2017-09-20 Heart Rate 64 bpm 2017-09-20 Respiratory Rate 18 2017-09-20 BMI 19.92 kg/m2 2017-09-20 Blood pressure systolic 84 mmHg 2017-09-20 Blood pressure diastolic 56 mmHg 2017-09-20 MEDICATIONS Medication Instructions Dosage Frequency Start Date End Date Duration Status Active Clotrimazole 3 2 % Vaginal Once a day at night 1 application at bedtime Aug, Sep, 3 day(s) Active BusPIRone HCl 5 mg Orally 3 times a day 1 tablet 8h July, 30 days Not-Taking RESULTS No Results PROCEDURES Procedure Date Ordered Result Body Site URINALYSIS, AUTO, W/O SCOPE September 20, 2017 [facility], 2017 INSTRUCTIONS MEDICATIONS ADMINISTERED No Known Medications MEDICAL (GENERAL) HISTORY Type Description Date Surgical History tonsillectomy
--- OUTSIDE RECORDS SUMMARY | 2018-01-02 13:31 | XMS REPORT ---
Author Author SALMA DE LEON [facility] Address [address] [place] [address] Care Team Providers Care Casino Floor Supervisor Name Role Phone SALMA DE LEON Unavailable PROBLEMS Type Condition ICD9-CM Code ADV67-HS Code Onset Dates Condition Status SNOMED Code Problem care, first in third trimester Z34.03 Active 655364450 Problem Major depressive disorder, single episode, unspecified F32.9 Active 51983301 Problem Generalized anxiety disorder F41.1 Active 00756110 Problem GBS bacteriuria R82.71 Active 78130770 ALLERGIES No Information ENCOUNTERS Encounter Location Date Diagnosis [place] [address] [address] [id number] [place] [address] 95132- 0300 Dec, [place] [address] [id number] [place] [address] 88439- 0724 Dec, [place] [address] [address] [id number] [place] [address] 69841- 9506 Nov, [place] [address] [id number] [place] [address] 52793- 3955 Nov, Third trimester Z34.93 and 36 weeks gestation of Z3A.36 [place] [address] [id number] [place] [address] 83206- 9597 Nov, [place] [address] [address] [id number] [place] [address] 29110- 3498 Oct, Third trimester Z34.93 ; Fundal height low for dates in third trimester O26.843 and 33 weeks gestation of Z3A.33 [place] [address] [id number] [place] [address] 98849- 3801 Oct, Hyperemesis R11.10 [place] [address] [place] [address]- 9330 Oct, Hyperemesis R11.10 [place] [address] [id number] [place] [address] 78889- 9723 Oct, [place] [address] [id number] [place] [address] 89099- 0134 Oct, 30 weeks gestation of Z3A.30 ; care, first in third trimester Z34.03 and Encounter for immunization Z23 [place] [address] [id number] [place] [address] 49028- 0468 Sep, [place] [address] 71251- 6431 Sep, Second trimester Z34.92 and 26 weeks gestation of Z3A.26 [facility] [id number] [place] [address] 24654 -0157 Aug, Vaginal itching N89.8 [place] [address] [address] [id number] [place] [address] 16263- 7386 12 Aug, 2017 care, first in second trimester Z34.02 ; 22 weeks gestation of Z3A.22 and Evaluate anatomy not seen on prior sonogram Z04.8 [place] [address] [address] [id number] [place] [address] 56176- 3837 July, Generalized anxiety disorder F41.1 and Major depressive disorder, single episode, unspecified F32.9 [place] [id number] [place] [address] 67925- 5197 July, care, first in second trimester Z34.02 and 17 weeks gestation of Z3A.17 [place] [address] [address] [id number] [place] [address] 49254- 6917 Jun, Generalized anxiety disorder F41.1 [place] [id number] [place] [address] 04307- 7989 Jun, Second trimester Z34.92 ; 14 weeks gestation of Z3A.14 and Nausea and vomiting during O21.9 [place] [address] [address]- 8318 17 Jun, 2017 [place] [address] [address] [id number] [place] [address] 35012- 7272 17 Jun, 2017 Generalized anxiety disorder F41.1 and Major depressive disorder, single episode, unspecified F32.9 [place] [id number] [place] [address] 28044- 2574 Jun, Generalized anxiety disorder F41.1 and Major depressive disorder, single episode, unspecified F32.9 [place] [id number] [place] [address] 14672- 5270 12 Jun, 2017 13 weeks gestation of Z3A.13 ; Itching L29.9 and Encounter for care in second trimester of first Z34.02 [place] [id number] [place] [address] 93092- 4213 02 Jun, 2017 [place] [address] [place] [address] 02138- 1491 May, Generalized anxiety disorder F41.1 ; Major depressive disorder, single episode, unspecified F32.9 ; Other mental disorders complicating , first trimester O99.341 and Adjustment disorder with mixed anxiety and depressed mood F43.23 [place] [address] [place] [address] 48018- 7173 May, care, first in first trimester Z34.01 ; 10 weeks gestation of Z3A.10 ; Glucosuria R81 and Vaginal candidiasis B37.3 [facility] [address] [id number] [address] Apr, [place] [address] [place] [address] 09555- 2680 Apr, [place] [address] [place] [address] 68458- 2548 Apr, Encounter for test Z32.00 [facility] [address] [facility] [id number] [place] [address]- 6036 16 Apr, 2017 IMMUNIZATIONS No Known Immunizations SOCIAL HISTORY Never Assessed REASON FOR VISIT appt scheduled with Salma PLAN OF CARE VITAL SIGNS MEDICATIONS Unknown Medications RESULTS No Results PROCEDURES No Known procedures INSTRUCTIONS MEDICATIONS ADMINISTERED No Known Medications MEDICAL (GENERAL) HISTORY Type Description Date Surgical History tonsillectomy
--- OUTSIDE RECORDS SUMMARY | 2018-01-02 13:31 | XMS REPORT ---
Author Author SERGIO YOMI [facility] Address [address] [place] [address] Care Team Providers Care Quarry Manager Name Role Phone SERIGOCHARITY MORAHANY Unavailable PROBLEMS Type Condition ICD9-CM Code BMA14-OZ Code Onset Dates Condition Status SNOMED Code Problem care, first in third trimester Z34.03 Active 827512763 Problem Major depressive disorder, single episode, unspecified F32.9 Active 06217571 Problem Generalized anxiety disorder F41.1 Active 12894362 Problem GBS bacteriuria R82.71 Active 35599284 ALLERGIES Substance Reaction Event Type Date Status Sulfamethoxazole-Trimethoprim Hives Drug Allergy Sep, Active Penicillin V Potassium Unknown Drug Allergy Sep, Active ENCOUNTERS Encounter Location Date Diagnosis [facility] [address] [place] [address] 03717- 6617 Dec, [facility] [address] [id number] [place] [address] 20085- 6120 Dec, [facility] [id number] [place] [address] 67434- 7575 Nov, [facility] [address] [place] [address] [id number] Nov, [facility] [id number] [place] [address] 02727- 6732 Oct, Third trimester Z34.93 ; Fundal height low for dates in third trimester O26.843 and 33 weeks gestation of Z3A.33 [facility] [address] [place] [id number] [place] [address] 95593- 2340 Oct, Hyperemesis R11.10 [facility] [address] [place] [id number] [place] [address] 08306- 0339 Oct, Hyperemesis R11.10 [facility] [id number] [place] [address] 38380- 0431 Oct, [place] [address] 11500- 1801 Oct, 30 weeks gestation of Z3A.30 ; care, first in third trimester Z34.03 and Encounter for immunization Z23 [place] [address] 02081- 6805 Sep, [place] [address] 28714- 1778 Sep, Second trimester Z34.92 and 26 weeks gestation of Z3A.26 [facility] [address] [place] [id number] [place] [address] 18524 -7841 Aug, Vaginal itching N89.8 [place] [address] [id number] [place] [address] 05962- 4213 Aug, care, first in second trimester Z34.02 ; 22 weeks gestation of Z3A.22 and Evaluate anatomy not seen on prior sonogram Z04.8 [place] [address] [id number] [place] [address] 51026- 8711 July, Generalized anxiety disorder F41.1 and Major depressive disorder, single episode, unspecified F32.9 [place] [address] [id number] [place] [address] 97074- 7299 July, care, first in second trimester Z34.02 and 17 weeks gestation of Z3A.17 [place] [address] [place] [id number] [place] [address] 15983- 9207 Jun, Generalized anxiety disorder F41.1 [place] [address] [place] [address] [id number] [place] [address] 01754- 8500 Jun, Second trimester Z34.92 ; 14 weeks gestation of Z3A.14 and Nausea and vomiting during O21.9 [place] [address] [address]- 6597 Jun, [place] [address] [place] [address] [id number] [place] [address] 16307- 9136 Jun, Generalized anxiety disorder F41.1 and Major depressive disorder, single episode, unspecified F32.9 [place] [address] [place] [address] 28554- 0919 Jun, Generalized anxiety disorder F41.1 and Major depressive disorder, single episode, unspecified F32.9 [place] [address] [place] [address] 26262- 1301 Jun, 13 weeks gestation of Z3A.13 ; Itching L29.9 and Encounter for care in second trimester of first Z34.02 [place] [address] [id number] [place] [address] 71666- 4812 Jun, [place] [address] [place] [address] [id number] [place] [address] 42780- 6292 May, Generalized anxiety disorder F41.1 ; Major depressive disorder, single episode, unspecified F32.9 ; Other mental disorders complicating , first trimester O99.341 and Adjustment disorder with mixed anxiety and depressed mood F43.23 [place] [address] [place] [address] 52078- 8417 May, care, first in first trimester Z34.01 ; 10 weeks gestation of Z3A.10 ; Glucosuria R81 and Vaginal candidiasis B37.3 [facility] [id number] [place] [address] Apr, [place] [address] [place] [id number] [place] [address] 45507- 9168 Apr, [place] [address] [place] [address] 73133- 1553 Apr, Encounter for test Z32.00 [place] [address] [place] [id number] [place] [address] [place] [address]- 1541 16 Apr, 2017 IMMUNIZATIONS No Known Immunizations SOCIAL HISTORY Never Assessed REASON FOR VISIT OB 4wk f/u--Hyacinth, Pt requesting be checked for UTI. Not having symptoms PLAN OF CARE Activity Details Follow Up 2 Weeks, 2 Weeks Reason: VITAL SIGNS Height 66 in 2017-09-30 Weight 125.8 lbs 2017-09-30 Temperature 97.6 degrees Fahrenheit 2017-09-30 Heart Rate 84 bpm 2017-09-30 Respiratory Rate 20 2017-09-30 BMI 20.305 kg/m2 2017-09-30 Blood pressure systolic 110 mmHg 2017-09-30 Blood pressure diastolic 62 mmHg 2017-09-30 MEDICATIONS Medication Instructions Dosage Frequency Start Date End Date Duration Status Active BusPIRone HCl 5 mg Orally 3 times a day 1 tablet 8h July, 30 days Not-Taking RESULTS No Results PROCEDURES Procedure Date Ordered Result Body Site URINALYSIS, AUTO, W/O SCOPE September 30, 2017 [facility], 2017 VENIPUNCT, ROUTINE* September 30, 2017 INSTRUCTIONS MEDICATIONS ADMINISTERED No Known Medications MEDICAL (GENERAL) HISTORY Type Description Date Surgical History tonsillectomy
--- OUTSIDE RECORDS SUMMARY | 2018-01-02 13:32 | XMS REPORT ---
Author Author VENESSA CORONADO Organization [facility] [place] Address [address] [place] [address] Care Team Providers Care Button Tufting Machine Operator Name Role Phone VENESSA CORONADO Unavailable PROBLEMS Type Condition ICD9-CM Code DFB26-XD Code Onset Dates Condition Status SNOMED Code Problem Major depressive disorder, single episode, unspecified F32.9 Active 04284872 Problem Generalized anxiety disorder F41.1 Active 89835254 Problem GBS bacteriuria R82.71 Active 51906925 ALLERGIES Substance Reaction Event Type Date Status Sulfamethoxazole-Trimethoprim Hives Drug Allergy Jun, Active Penicillin V Potassium Unknown Drug Allergy Jun, Active ENCOUNTERS Encounter Location Date Diagnosis [facility] [place] [id number] [place] [address] 08633- 6662 Oct, [facility] [place] [id number] [place] [address] 54504- 5370 Oct, [facility] [place] [id number] [place] [address] 66448- 0293 Sep, [facility] [place] [id number] [place] [address] 70701- 0588 Sep, Second trimester Z34.92 and 26 weeks gestation of Z3A.26 [facility] [id number] [place] [address] 54973 -3706 30 Aug, 2017 Vaginal itching N89.8 [facility] [place] [address] 30630- 1289 12 Aug, 2017 care, first in second trimester Z34.02 ; 22 weeks gestation of Z3A.22 and Evaluate anatomy not seen on prior sonogram Z04.8 [facility] [place] [id number] [place] [address] 00969- 4630 July, Generalized anxiety disorder F41.1 and Major depressive disorder, single episode, unspecified F32.9 [place] [id number] [place] [address] 37030- 3771 10 Jul, 2017 care, first in second trimester Z34.02 and 17 weeks gestation of Z3A.17 [place] [id number] [place] [address] 61772- 5484 Jun, Generalized anxiety disorder F41.1 [place] [id number] [place] [address] 92820- 2146 18 Jun, 2017 Second trimester Z34.92 ; 14 weeks gestation of Z3A.14 and Nausea and vomiting during O21.9 [place] [id number] [place] [address] 20674- 3568 17 Jun, 2017 [place] [address] 61818- 2419 17 Jun, 2017 Generalized anxiety disorder F41.1 and Major depressive disorder, single episode, unspecified F32.9 [place] [id number] [place] [address] 06749- 4847 16 Jun, 2017 Generalized anxiety disorder F41.1 and Major depressive disorder, single episode, unspecified F32.9 [place] [id number] [place] [address] 04465- 8786 12 Jun, 2017 13 weeks gestation of Z3A.13 ; Itching L29.9 and Encounter for care in second trimester of first Z34.02 [place] [id number] [place] [address] 04540- 1605 Jun, [place] [id number] [place] [address] 26595- 2611 May, Generalized anxiety disorder F41.1 ; Major depressive disorder, single episode, unspecified F32.9 ; Other mental disorders complicating , first trimester O99.341 and Adjustment disorder with mixed anxiety and depressed mood F43.23 [place] [id number] [address] 8799 May, care, first in first trimester Z34.01 ; 10 weeks gestation of Z3A.10 ; Glucosuria R81 and Vaginal candidiasis B37.3 [facility] [address] [id number] [address] Apr, [facility] [place] [address], [place] [address] 4595 Apr, [facility] [place] [address], [place] [address] 1248 Apr, Encounter for test Z32.00 [place] [address], [place] [address] 7187 Apr, IMMUNIZATIONS No Known Immunizations SOCIAL HISTORY Never Assessed REASON FOR VISIT OB-acute , Nausea, vomiting, GUSTAFSON, and muscle pain since starting zoloft yesterday -FRANSICO Bergman PLAN OF CARE Activity Details Follow Up Has appt with Ashwin Reason: VITAL SIGNS Height 66 in 2017-07-09 Weight 113 lbs 2017-07-09 Temperature 98.4 degrees Fahrenheit 2017-07-09 Heart Rate 100 bpm 2017-07-09 Respiratory Rate 16 2017-07-09 BMI 18.239 kg/m2 2017-07-09 Blood pressure systolic 126 mmHg 2017-07-09 Blood pressure diastolic 70 mmHg 2017-07-09 MEDICATIONS Medication Instructions Dosage Frequency Start Date End Date Duration Status Zoloft 50 mg Orally Once a day 1 tablet 24h Jun, 30 day(s) Active Active RESULTS Name Result Date Reference Range UA OB DIP (IN HOUSE) 2017-07-09 Glucose neg Protein 1+ PROCEDURES Procedure Date Ordered Result Body Site URINE-NO MICRO July 09, 2017 INSTRUCTIONS MEDICATIONS ADMINISTERED No Known Medications MEDICAL (GENERAL) HISTORY Type Description Date Surgical History tonsillectomy
--- OUTSIDE RECORDS SUMMARY | 2018-01-02 13:32 | XMS REPORT ---
Author Author JUAN LEVY Organization [facility] Address [address] [place] [address] Care Team Providers Care Kitchenhand Name Role Phone JUAN LEVY Unavailable PROBLEMS Type Condition ICD9-CM Code SUZ62-GC Code Onset Dates Condition Status SNOMED Code Problem Major depressive disorder, single episode, unspecified F32.9 Active 33948532 Problem Generalized anxiety disorder F41.1 Active 31037183 Problem GBS bacteriuria R82.71 Active 26334732 ALLERGIES No Information ENCOUNTERS Encounter Location Date Diagnosis [place] [id number] [place] [address] 35982- 4378 Oct, [facility] [id number] [place] [address] 66205- 1485 Oct, [facility] [id number] [place] [address] 75522- 4568 Sep, [place] [address] 13906- 5832 Sep, Second trimester Z34.92 and 26 weeks gestation of Z3A.26 [facility] [id number] [place] [address] 35041 -0414 30 Aug, 2017 Vaginal itching N89.8 [facility] [id number] [place] [address] 41632- 3865 12 Aug, 2017 care, first in second trimester Z34.02 ; 22 weeks gestation of Z3A.22 and Evaluate anatomy not seen on prior sonogram Z04.8 [facility] [id number] [place] [address] 38956- 9146 July, Generalized anxiety disorder F41.1 and Major depressive disorder, single episode, unspecified F32.9 [place] [address] [address]- 8236 10 Jul, 2017 care, first in second trimester Z34.02 and 17 weeks gestation of Z3A.17 [place] [id number] [place] [address] 55825- 6798 25 Jun, 2017 Generalized anxiety disorder F41.1 [place] [id number] [place] [address] 20794- 3706 18 Jun, 2017 Second trimester Z34.92 ; 14 weeks gestation of Z3A.14 and Nausea and vomiting during O21.9 [place] [id number] [place] [address] 10359- 4294 17 Jun, 2017 [place] [id number] [place] [address] 39335- 4008 17 Jun, 2017 Generalized anxiety disorder F41.1 and Major depressive disorder, single episode, unspecified F32.9 [place] [id number] [place] [address] 05038- 6316 16 Jun, 2017 Generalized anxiety disorder F41.1 and Major depressive disorder, single episode, unspecified F32.9 [place] [id number] [place] [address] 11259- 9540 12 Jun, 2017 13 weeks gestation of Z3A.13 ; Itching L29.9 and Encounter for care in second trimester of first Z34.02 [place] [id number] [place] [address] 27280- 7322 Jun, [place] [id number] [place] [address] 70789- 3534 May, Generalized anxiety disorder F41.1 ; Major depressive disorder, single episode, unspecified F32.9 ; Other mental disorders complicating , first trimester O99.341 and Adjustment disorder with mixed anxiety and depressed mood F43.23 [place] [id number] [place] [address] 26680- 9977 May, care, first in first trimester Z34.01 ; 10 weeks gestation of Z3A.10 ; Glucosuria R81 and Vaginal candidiasis B37.3 [facility] [address] [id number] [address] Apr, [facility] [address], [place] [address] 2991 Apr, [place] [address], [place] [address]- 9955 Apr, Encounter for test Z32.00 [facility] [address], [place] [address]- 5203 Apr, IMMUNIZATIONS No Known Immunizations SOCIAL HISTORY Never Assessed REASON FOR VISIT Anxiety. PLAN OF CARE Activity Details Follow Up Next available Reason:Anxiety and depression. VITAL SIGNS MEDICATIONS Unknown Medications RESULTS No Results PROCEDURES Procedure Date Ordered Result Body Site Psychotherapy, patient &/family, 45 minutes, established patient July 07, 2017 INSTRUCTIONS MEDICATIONS ADMINISTERED No Known Medications MEDICAL (GENERAL) HISTORY Type Description Date Surgical History tonsillectomy
--- OUTSIDE RECORDS SUMMARY | 2018-01-02 13:32 | XMS REPORT ---
Author Author KITA BELLO [facility] Address [address] [place] [address] Care Team Providers Care Landscape Management Technician Name Role Phone KITA BELLO Unavailable PROBLEMS Type Condition ICD9-CM Code IHK27-EL Code Onset Dates Condition Status SNOMED Code Problem care, first in third trimester Z34.03 Active 941445526 Problem Major depressive disorder, single episode, unspecified F32.9 Active 69942451 Problem Generalized anxiety disorder F41.1 Active 55165884 Problem GBS bacteriuria R82.71 Active 10546212 ALLERGIES Substance Reaction Event Type Date Status Sulfamethoxazole-Trimethoprim Hives Drug Allergy July, Active Penicillin V Potassium Unknown Drug Allergy July, Active ENCOUNTERS Encounter Location Date Diagnosis [facility] [address] [place] [address] 45129- 8576 Oct, [facility] [address] [place] [address] Oct, [facility] [id number] [place] [address] 86381- 9965 Oct, [facility] [address] [place] [address] 92023- 2524 Oct, [facility] [id number] [place] [address] 11748- 1729 Oct, [facility] [address] [place] [address] 84602- 9191 Oct, 30 weeks gestation of Z3A.30 ; care, first in third trimester Z34.03 and Encounter for immunization Z23 [facility] [address] [place] [address] 38661- 7907 Sep, [facility] [address] [place] [address]- 7835 10 Sep, 2017 Second trimester Z34.92 and 26 weeks gestation of Z3A.26 [facility] [id number] [place] [address] 46975 -3375 30 Aug, 2017 Vaginal itching N89.8 [facility] [id number] [place] [address] 44768- 0420 12 Aug, 2017 care, first in second trimester Z34.02 ; 22 weeks gestation of Z3A.22 and Evaluate anatomy not seen on prior sonogram Z04.8 [place] [id number] [place] [address] 02975- 3629 July, Generalized anxiety disorder F41.1 and Major depressive disorder, single episode, unspecified F32.9 [facility] [id number] [place] [address] 06551- 7501 July, care, first in second trimester Z34.02 and 17 weeks gestation of Z3A.17 [facility] [id number] [place] [address] 00035- 3513 Jun, Generalized anxiety disorder F41.1 [place] [id number] [place] [address] 81327- 5189 18 Jun, 2017 Second trimester Z34.92 ; 14 weeks gestation of Z3A.14 and Nausea and vomiting during O21.9 [place] [id number] [place] [address] 77975- 2404 Jun, [place] [id number] [place] [address] 79613- 0048 Jun, Generalized anxiety disorder F41.1 and Major depressive disorder, single episode, unspecified F32.9 [place] [id number] [place] [address] 51428- 1150 Jun, Generalized anxiety disorder F41.1 and Major depressive disorder, single episode, unspecified F32.9 [place] [id number] [place] [address] 75357- 4980 12 Jun, 2017 13 weeks gestation of Z3A.13 ; Itching L29.9 and Encounter for care in second trimester of first Z34.02 [place] [id number] [place] [address] 40483- 8887 02 Jun, 2017 [place] [address] 91744- 7394 May, Generalized anxiety disorder F41.1 ; Major depressive disorder, single episode, unspecified F32.9 ; Other mental disorders complicating , first trimester O99.341 and Adjustment disorder with mixed anxiety and depressed mood F43.23 [place] [address] 77084- 0953 May, care, first in first trimester Z34.01 ; 10 weeks gestation of Z3A.10 ; Glucosuria R81 and Vaginal candidiasis B37.3 [facility] [address] [address] 24 Apr, 2017 [place] [id number] [place] [address] 11793- 2067 Apr, [place] [id number] [place] [address] 58563- 4757 Apr, Encounter for test Z32.00 [place] [address] 02699- 9396 Apr, IMMUNIZATIONS No Known Immunizations SOCIAL HISTORY Never Assessed REASON FOR VISIT DAE f/smión-Marv [facility] PLAN OF CARE Activity Details Follow Up 4 Weeks Reason:DAE f/u VITAL SIGNS Height 66 in 2017-07-31 Weight 116.9 lbs 2017-07-31 Heart Rate 104 bpm 2017-07-31 Respiratory Rate 20 2017-07-31 BMI 18.87 kg/m2 2017-07-31 Blood pressure systolic 110 mmHg 2017-07-31 Blood pressure diastolic 68 mmHg 2017-07-31 MEDICATIONS Medication Instructions Dosage Frequency Start Date End Date Duration Status BusPIRone HCl 5 mg Orally 3 times a day 1 tablet 8h July, 30 days Active Active RESULTS No Results PROCEDURES No Known procedures INSTRUCTIONS MEDICATIONS ADMINISTERED No Known Medications MEDICAL (GENERAL) HISTORY Type Description Date Surgical History tonsillectomy
--- OUTSIDE RECORDS SUMMARY | 2018-01-02 13:32 | XMS REPORT ---
Author Author KITA BELLO [facility] Address [address] [place] [address] Care Team Providers Care Cnc Grinder Name Role Phone KITA BELLO Unavailable PROBLEMS Type Condition ICD9-CM Code AQA89-FC Code Onset Dates Condition Status SNOMED Code Problem Major depressive disorder, single episode, unspecified F32.9 Active 59724658 Problem Generalized anxiety disorder F41.1 Active 28106265 Problem GBS bacteriuria R82.71 Active 31008986 ALLERGIES Substance Reaction Event Type Date Status Sulfamethoxazole-Trimethoprim Hives Drug Allergy Jun, Active Penicillin V Potassium Unknown Drug Allergy Jun, Active ENCOUNTERS Encounter Location Date Diagnosis [facility] [id number] [place] [address] 11874- 4108 Oct, [facility] [id number] [place] [address] 90694- 4853 Oct, [facility] [id number] [place] [address] 38882- 2404 Sep, [facility] [id number] [place] [address] 22092- 3077 Sep, Second trimester Z34.92 and 26 weeks gestation of Z3A.26 [facility] [id number] [place] [address] 89326 -6351 30 Aug, 2017 Vaginal itching N89.8 [facility] [id number] [place] [address] 08065- 1388 12 Aug, 2017 care, first in second trimester Z34.02 ; 22 weeks gestation of Z3A.22 and Evaluate anatomy not seen on prior sonogram Z04.8 [facility] [id number] [place] [address] 58561- 7875 July, Generalized anxiety disorder F41.1 and Major depressive disorder, single episode, unspecified F32.9 [place] [id number] [place] [address] 60582- 7689 10 Jul, 2017 care, first in second trimester Z34.02 and 17 weeks gestation of Z3A.17 [place] [id number] [place] [address] 58924- 1581 Jun, Generalized anxiety disorder F41.1 [place] [id number] [place] [address] 60611- 0626 18 Jun, 2017 Second trimester Z34.92 ; 14 weeks gestation of Z3A.14 and Nausea and vomiting during O21.9 [place] [id number] [place] [address] 87603- 5980 17 Jun, 2017 [place] [address] 67717- 3084 17 Jun, 2017 Generalized anxiety disorder F41.1 and Major depressive disorder, single episode, unspecified F32.9 [place] [id number] [place] [address] 44944- 3834 16 Jun, 2017 Generalized anxiety disorder F41.1 and Major depressive disorder, single episode, unspecified F32.9 [place] [id number] [place] [address] 92348- 9445 12 Jun, 2017 13 weeks gestation of Z3A.13 ; Itching L29.9 and Encounter for care in second trimester of first Z34.02 [place] [id number] [place] [address] 25141- 2087 Jun, [place] [address] 23051- 2802 May, Generalized anxiety disorder F41.1 ; Major depressive disorder, single episode, unspecified F32.9 ; Other mental disorders complicating , first trimester O99.341 and Adjustment disorder with mixed anxiety and depressed mood F43.23 [place] [address] [facility] [id number] [address]- 1499 May, care, first in first trimester Z34.01 ; 10 weeks gestation of Z3A.10 ; Glucosuria R81 and Vaginal candidiasis B37.3 [facility] [address] [id number] [address] Apr, [facility] [address], [place] [address]- 7606 Apr, [place] [address], [place] [address]- 4907 Apr, Encounter for test Z32.00 [place] [address], [place] [address]- 7861 Apr, IMMUNIZATIONS No Known Immunizations SOCIAL HISTORY Never Assessed REASON FOR VISIT intake---[facility] PLAN OF CARE Activity Details Follow Up 3 Weeks Reason: f/u VITAL SIGNS Height 66 in 2017-07-08 Weight 114.5 lbs 2017-07-08 Heart Rate 80 bpm 2017-07-08 Respiratory Rate 20 2017-07-08 BMI 18.48 kg/m2 2017-07-08 Blood pressure systolic 122 mmHg 2017-07-08 Blood pressure diastolic 60 mmHg 2017-07-08 MEDICATIONS Medication Instructions Dosage Frequency Start Date End Date Duration Status Vol-Care Rx 1 MG Orally Once a day 1 tablet 24h May, 30 day(s) Not-Taking Zoloft 50 mg Orally Once a day 1 tablet 24h Jun, 30 day(s) Active Active RESULTS No Results PROCEDURES No Known procedures INSTRUCTIONS MEDICATIONS ADMINISTERED No Known Medications MEDICAL (GENERAL) HISTORY Type Description Date Surgical History tonsillectomy
--- OUTSIDE RECORDS SUMMARY | 2018-01-02 13:32 | XMS REPORT ---
Author Author SERGIO YOMI [facility] Address [address] [place] [address] Care Team Providers Care Supervisor Communications And Signals Name Role Phone SERGIO YOMI Unavailable PROBLEMS Type Condition ICD9-CM Code YBV92-QU Code Onset Dates Condition Status SNOMED Code Problem Major depressive disorder, single episode, unspecified F32.9 Active 65828286 Problem Generalized anxiety disorder F41.1 Active 15121632 Problem GBS bacteriuria R82.71 Active 60730236 ALLERGIES No Information ENCOUNTERS Encounter Location Date Diagnosis [place] [id number] [place] [address] 11247- 5020 Oct, [facility] [address] 36885- 4678 Oct, [facility] [id number] [place] [address] 09817- 2470 Sep, [facility] [id number] [place] [address] 63532- 3120 Sep, Second trimester Z34.92 and 26 weeks gestation of Z3A.26 [facility] [id number] [place] [address] 47546 -3478 30 Aug, 2017 Vaginal itching N89.8 [facility] [id number] [place] [address] 86242- 9629 12 Aug, 2017 care, first in second trimester Z34.02 ; 22 weeks gestation of Z3A.22 and Evaluate anatomy not seen on prior sonogram Z04.8 [facility] [id number] [place] [address] 65860- 2753 July, Generalized anxiety disorder F41.1 and Major depressive disorder, single episode, unspecified F32.9 [place] [address] [place] [address] 21953- 8295 10 Jul, 2017 care, first in second trimester Z34.02 and 17 weeks gestation of Z3A.17 [place] [id number] [place] [address] 15413- 9227 Jun, Generalized anxiety disorder F41.1 [place] [id number] [place] [address] 36688- 9573 18 Jun, 2017 Second trimester Z34.92 ; 14 weeks gestation of Z3A.14 and Nausea and vomiting during O21.9 [place] [id number] [place] [address] 11372- 0334 17 Jun, 2017 [place] [id number] [place] [address] 74914- 6239 17 Jun, 2017 Generalized anxiety disorder F41.1 and Major depressive disorder, single episode, unspecified F32.9 [place] [id number] [place] [address] 71306- 8608 16 Jun, 2017 Generalized anxiety disorder F41.1 and Major depressive disorder, single episode, unspecified F32.9 [place] [id number] [place] [address] 70933- 3064 Jun, 13 weeks gestation of Z3A.13 ; Itching L29.9 and Encounter for care in second trimester of first Z34.02 [place] [id number] [place] [address] 14409- 7822 Jun, [place] [address] [place] [address] 95185- 4092 May, Generalized anxiety disorder F41.1 ; Major depressive disorder, single episode, unspecified F32.9 ; Other mental disorders complicating , first trimester O99.341 and Adjustment disorder with mixed anxiety and depressed mood F43.23 [place] [id number] [place] [address] 70104- 3552 May, care, first in first trimester Z34.01 ; 10 weeks gestation of Z3A.10 ; Glucosuria R81 and Vaginal candidiasis B37.3 [facility] [id number] [address] Apr, [place] [address], [place] [address]- 9255 Apr, [place] [address] [place] [address] 20043- 7885 Apr, Encounter for test Z32.00 [place] [address] [place] [address] 97960- 4474 Apr, IMMUNIZATIONS No Known Immunizations SOCIAL HISTORY Never Assessed REASON FOR VISIT OB concern PLAN OF CARE VITAL SIGNS MEDICATIONS Unknown Medications RESULTS No Results PROCEDURES No Known procedures INSTRUCTIONS MEDICATIONS ADMINISTERED No Known Medications MEDICAL (GENERAL) HISTORY Type Description Date Surgical History tonsillectomy
--- OUTSIDE RECORDS SUMMARY | 2018-01-02 13:32 | XMS REPORT ---
Author Author SERGIO YOMI [facility] Address [address] [place] [address] Care Team Providers Care Collections And Archives Director Name Role Phone SERGIOCHARITY MORAHANY Unavailable PROBLEMS Type Condition ICD9-CM Code [id number] Code Onset Dates Condition Status SNOMED Code Problem care, first in third trimester Z34.03 Active 627062924 Problem Major depressive disorder, single episode, unspecified F32.9 Active 18172143 Problem Generalized anxiety disorder F41.1 Active 31944118 Problem GBS bacteriuria R82.71 Active 22171143 ALLERGIES Substance Reaction Event Type Date Status Sulfamethoxazole-Trimethoprim Hives Drug Allergy Aug, Active Penicillin V Potassium Unknown Drug Allergy Aug, Active ENCOUNTERS Encounter Location Date Diagnosis [facility] [address] [place] [address] 62441- 3076 Dec, [facility] [id number] [place] [address] 73386- 6568 Dec, [facility] [id number] [place] [address] 48974- 1101 Nov, [facility] [address] [place] [address] [id number] Nov, [facility] [id number] [place] [address] 44511- 9440 Oct, Third trimester Z34.93 and Fundal height low for dates in third trimester O26.843 [facility] [id number] [place] [address] 61999- 0085 Oct, Hyperemesis R11.10 [facility] [id number] [place] [address] 82497- 4141 Oct, Hyperemesis R11.10 [place] [id number] [place] [address] 02775- 3982 Oct, [place] [address] 30577- 3688 Oct, 30 weeks gestation of Z3A.30 ; care, first in third trimester Z34.03 and Encounter for immunization Z23 [address] 15538- 4218 Sep, [place] [address] 84500- 9515 Sep, Second trimester Z34.92 and 26 weeks gestation of Z3A.26 [facility] [address] 02[address]168 Aug, Vaginal itching N89.[address] 84187- 6053 Aug, care, first in second trimester Z34.02 ; 22 weeks gestation of Z3A.22 and Evaluate anatomy not seen on prior sonogram Z04.[address] 29018- 6753 July, Generalized anxiety disorder F41.1 and Major depressive disorder, single episode, unspecified F32.9 [place] [id number] [place] [address] 25109- 2789 July, care, first in second trimester Z34.02 and 17 weeks gestation of Z3A.17 [place] [id number] [place] [address] 85582- 3271 Jun, Generalized anxiety disorder F41.[address] 81552- 6288 Jun, Second trimester Z34.92 ; 14 weeks gestation of Z3A.14 and Nausea and vomiting during O21.[address] [place] [address]- 7788 Jun, [place] [address] [place] [address] 18848- 1802 Jun, Generalized anxiety disorder F41.1 and Major depressive disorder, single episode, unspecified F32.9 [place] [address] [place] [address] 99594- 7639 Jun, Generalized anxiety disorder F41.1 and Major depressive disorder, single episode, unspecified F32.9 [place] [address] [place] [address] 87589- 4299 Jun, 13 weeks gestation of Z3A.13 ; Itching L29.9 and Encounter for care in second trimester of first Z34.02 [place] [address] [place] [address] 85369- 8334 Jun, [place] [id number] [place] [address] 76866- 0791 May, Generalized anxiety disorder F41.1 ; Major depressive disorder, single episode, unspecified F32.9 ; Other mental disorders complicating , first trimester O99.341 and Adjustment disorder with mixed anxiety and depressed mood F43.23 [place] [address] [place] [address] 85982- 0205 May, care, first in first trimester Z34.01 ; 10 weeks gestation of Z3A.10 ; Glucosuria R81 and Vaginal candidiasis B37.3 [facility] [address] [id number] [address] Apr, [place] [address] [place] [address] 26977- 8346 Apr, [place] [address] [place] [address] 08745- 8102 Apr, Encounter for test Z32.00 [place] [id number] [place] [address] 34586- 5519 16 Apr, 2017 IMMUNIZATIONS No Known Immunizations SOCIAL HISTORY Never Assessed REASON FOR VISIT OB 4wk f/u--tcuppettRN PLAN OF CARE Activity Details Follow Up 4 Weeks, 4 Weeks, 4 Weeks Reason: VITAL SIGNS Height 66 in 2017-09-02 Weight 122.7 lbs 2017-09-02 Temperature 98.3 degrees Fahrenheit 2017-09-02 Heart Rate 90 bpm 2017-09-02 Respiratory Rate 20 2017-09-02 BMI 19.804 kg/m2 2017-09-02 Blood pressure systolic 104 mmHg 2017-09-02 Blood pressure diastolic 70 mmHg 2017-09-02 MEDICATIONS Medication Instructions Dosage Frequency Start Date End Date Duration Status Active BusPIRone HCl 5 mg Orally 3 times a day 1 tablet 8h July, 30 days Active RESULTS Name Result Date Reference Range UA LONG DIP (IN HOUSE) 2017-09-02 Lot # [id number] Exp date 01/21/18 Clarity clear Color yelloe Odor no GLU Negative TATI Negative KET Negative SG >=1.030 BLO negative pH 6.0 Protein Negative URO 0.2 NIT Negative NINA Negative Lot # Exp date Ultrasound : OB, Follow-up 2017-10-02 PROCEDURES Procedure Date Ordered Result Body Site URINALYSIS, AUTO, W/O SCOPE September 02, 2017 INSTRUCTIONS MEDICATIONS ADMINISTERED No Known Medications MEDICAL (GENERAL) HISTORY Type Description Date Surgical History tonsillectomy
--- OUTSIDE RECORDS SUMMARY | 2018-01-02 13:32 | XMS REPORT ---
Author Author SHWETA ARROYO [facility] Address [address] [place] [address] Care Team Providers Care Clerical Investigator Name Role Phone DINA SHWETA Unavailable PROBLEMS Type Condition ICD9-CM Code [id number] Code Onset Dates Condition Status SNOMED Code Problem Major depressive disorder, single episode, unspecified F32.9 Active 61535512 Problem Generalized anxiety disorder F41.1 Active 45337196 Problem GBS bacteriuria R82.71 Active 86555421 ALLERGIES No Information ENCOUNTERS Encounter Location Date Diagnosis [place] [id number] [place] [address] 21731- 5975 Oct, [facility] [address] 29197- 7368 Oct, [facility] [id number] [place] [address] 46278- 7733 Sep, [place] [address] 92908- 5850 Sep, Second trimester Z34.92 and 26 weeks gestation of Z3A.26 [facility] [id number] [place] [address] 31061 -5720 30 Aug, 2017 Vaginal itching N89.8 [facility] [id number] [place] [address] 16483- 4459 12 Aug, 2017 care, first in second trimester Z34.02 ; 22 weeks gestation of Z3A.22 and Evaluate anatomy not seen on prior sonogram Z04.8 [facility] [id number] [place] [address] 86260- 2348 July, Generalized anxiety disorder F41.1 and Major depressive disorder, single episode, unspecified F32.9 [place] [address] [address]- 1050 10 Jul, 2017 care, first in second trimester Z34.02 and 17 weeks gestation of Z3A.17 [place] [id number] [place] [address] 81868- 8679 25 Jun, 2017 Generalized anxiety disorder F41.1 [place] [id number] [place] [address] 41094- 3859 18 Jun, 2017 Second trimester Z34.92 ; 14 weeks gestation of Z3A.14 and Nausea and vomiting during O21.9 [place] [id number] [place] [address] 64001- 2111 17 Jun, 2017 [place] [id number] [place] [address] 63642- 9338 17 Jun, 2017 Generalized anxiety disorder F41.1 and Major depressive disorder, single episode, unspecified F32.9 [place] [id number] [place] [address] 54214- 2035 16 Jun, 2017 Generalized anxiety disorder F41.1 and Major depressive disorder, single episode, unspecified F32.9 [place] [id number] [place] [address] 09343- 6743 12 Jun, 2017 13 weeks gestation of Z3A.13 ; Itching L29.9 and Encounter for care in second trimester of first Z34.02 [place] [id number] [place] [address] 24488- 3998 Jun, [place] [id number] [place] [address] 67476- 3391 May, Generalized anxiety disorder F41.1 ; Major depressive disorder, single episode, unspecified F32.9 ; Other mental disorders complicating , first trimester O99.341 and Adjustment disorder with mixed anxiety and depressed mood F43.23 [place] [id number] [place] [address] 71235- 9497 May, care, first in first trimester Z34.01 ; 10 weeks gestation of Z3A.10 ; Glucosuria R81 and Vaginal candidiasis B37.3 [facility] [address] [id number] [address] Apr, [facility] [address] [address]- 3903 Apr, [place] [address] [place] [address] 49645- 1551 Apr, Encounter for test Z32.00 [place] [address] [address]- 5054 Apr, IMMUNIZATIONS No Known Immunizations SOCIAL HISTORY Never Assessed REASON FOR VISIT Presumptive Eligibility-APPROVED PLAN OF CARE VITAL SIGNS MEDICATIONS Unknown Medications RESULTS No Results PROCEDURES No Known procedures INSTRUCTIONS MEDICATIONS ADMINISTERED No Known Medications MEDICAL (GENERAL) HISTORY Type Description Date Surgical History tonsillectomy
--- OUTSIDE RECORDS SUMMARY | 2018-01-02 13:32 | XMS REPORT ---
Author Author SERGIO YOMI [facility] Address [address] [place] [address] Care Team Providers Care Chemist Intern Name Role Phone SERGIO YOMI Unavailable PROBLEMS Type Condition ICD9-CM Code [id number] Code Onset Dates Condition Status SNOMED Code Problem Major depressive disorder, single episode, unspecified F32.9 Active 18229664 Problem Generalized anxiety disorder F41.1 Active 37738881 Problem GBS bacteriuria R82.71 Active 17334359 ALLERGIES No Information ENCOUNTERS Encounter Location Date Diagnosis [place] [id number] [place] [address] 31078- 1859 Oct, [facility] [address] 13273- 6026 Oct, [facility] [id number] [place] [address] 16913- 8863 Sep, [facility] [id number] [place] [address] 33361- 9975 Sep, Second trimester Z34.92 and 26 weeks gestation of Z3A.26 [facility] [id number] [place] [address] 16348 -8362 30 Aug, 2017 Vaginal itching N89.8 [facility] [id number] [place] [address] 36820- 1047 12 Aug, 2017 care, first in second trimester Z34.02 ; 22 weeks gestation of Z3A.22 and Evaluate anatomy not seen on prior sonogram Z04.8 [facility] [id number] [place] [address] 70852- 2273 July, Generalized anxiety disorder F41.1 and Major depressive disorder, single episode, unspecified F32.9 [place] [address] [place] [address] 56002- 9822 10 Jul, 2017 care, first in second trimester Z34.02 and 17 weeks gestation of Z3A.17 [place] [id number] [place] [address] 61485- 1589 Jun, Generalized anxiety disorder F41.1 [place] [id number] [place] [address] 11840- 3008 18 Jun, 2017 Second trimester Z34.92 ; 14 weeks gestation of Z3A.14 and Nausea and vomiting during O21.9 [place] [id number] [place] [address] 40316- 6472 17 Jun, 2017 [place] [id number] [place] [address] 51083- 4628 17 Jun, 2017 Generalized anxiety disorder F41.1 and Major depressive disorder, single episode, unspecified F32.9 [place] [id number] [place] [address] 98558- 1196 16 Jun, 2017 Generalized anxiety disorder F41.1 and Major depressive disorder, single episode, unspecified F32.9 [place] [id number] [place] [address] 77552- 6501 Jun, 13 weeks gestation of Z3A.13 ; Itching L29.9 and Encounter for care in second trimester of first Z34.02 [place] [id number] [place] [address] 27009- 0026 Jun, [place] [id number] [place] [address] 22801- 9639 May, Generalized anxiety disorder F41.1 ; Major depressive disorder, single episode, unspecified F32.9 ; Other mental disorders complicating , first trimester O99.341 and Adjustment disorder with mixed anxiety and depressed mood F43.23 [place] [id number] [place] [address] 32730- 4523 May, care, first in first trimester Z34.01 ; 10 weeks gestation of Z3A.10 ; Glucosuria R81 and Vaginal candidiasis B37.3 [facility] [address] [id number] [address] 24 Apr, 2017 [facility] [address] [address]- 5346 Apr, [place] [address] [address]- 0187 Apr, Encounter for test Z32.00 [place] [address] [address]- 9841 Apr, IMMUNIZATIONS No Known Immunizations SOCIAL HISTORY Never Assessed REASON FOR VISIT med refill PLAN OF CARE VITAL SIGNS MEDICATIONS Medication Instructions Dosage Frequency Start Date End Date Duration Status Zoloft 25 MG Orally Once a day 1/2 tablet 24h Jun, 30 day(s) Active RESULTS No Results PROCEDURES No Known procedures INSTRUCTIONS MEDICATIONS ADMINISTERED No Known Medications MEDICAL (GENERAL) HISTORY Type Description Date Surgical History tonsillectomy
--- OUTSIDE RECORDS SUMMARY | 2018-01-02 13:32 | XMS REPORT ---
Author Author SERGIO YOMI [facility] [address] Address [address] [place] [address] Care Team Providers Care Seam Press Operator Name Role Phone YOMI HILL Unavailable PROBLEMS Type Condition ICD9-CM Code [id number] Code Onset Dates Condition Status SNOMED Code Problem care, first in third trimester Z34.03 Active 483650066 Problem Major depressive disorder, single episode, unspecified F32.9 Active 54324496 Problem Generalized anxiety disorder F41.1 Active 39835294 Problem GBS bacteriuria R82.71 Active 40557095 ALLERGIES Substance Reaction Event Type Date Status Sulfamethoxazole-Trimethoprim Hives Drug Allergy July, Active Penicillin V Potassium Unknown Drug Allergy July, Active ENCOUNTERS Encounter Location Date Diagnosis [facility] [address] [place] [address] 57346- 6447 Oct, [facility] [address] [place] [address] Oct, [facility] [id number] [place] [address] 81012- 6170 Oct, [facility] [address] [place] [address] 35775- 6646 Oct, [facility] [id number] [place] [address] 30879- 3785 Oct, [facility] [id number] [place] [address] 69113- 6145 Oct, 30 weeks gestation of Z3A.30 ; care, first in third trimester Z34.03 and Encounter for immunization Z23 [facility] [address] [place] [address] 92214- 8703 Sep, [facility] [id number] [place] [address] 07398- 9119 Sep, Second trimester Z34.92 and 26 weeks gestation of Z3A.26 [facility] [id number] [place] [address] 34642 -4974 30 Aug, 2017 Vaginal itching N89.8 [facility] [id number] [place] [address] 53162- 7799 12 Aug, 2017 care, first in second trimester Z34.02 ; 22 weeks gestation of Z3A.22 and Evaluate anatomy not seen on prior sonogram Z04.8 [place] [id number] [place] [address] 06512- 4463 July, Generalized anxiety disorder F41.1 and Major depressive disorder, single episode, unspecified F32.9 [facility] [id number] [place] [address] 67178- 3013 July, care, first in second trimester Z34.02 and 17 weeks gestation of Z3A.17 [facility] [id number] [place] [address] 60051- 2637 Jun, Generalized anxiety disorder F41.1 [place] [id number] [place] [address] 55586- 0879 18 Jun, 2017 Second trimester Z34.92 ; 14 weeks gestation of Z3A.14 and Nausea and vomiting during O21.9 [place] [id number] [place] [address] 56016- 1990 Jun, [place] [id number] [place] [address] 04038- 3564 Jun, Generalized anxiety disorder F41.1 and Major depressive disorder, single episode, unspecified F32.9 [place] [id number] [place] [address] 24717- 0742 Jun, Generalized anxiety disorder F41.1 and Major depressive disorder, single episode, unspecified F32.9 [place] [id number] [place] [address] 40408- 6801 Jun, 13 weeks gestation of Z3A.13 ; Itching L29.9 and Encounter for care in second trimester of first Z34.02 [place] [id number] [place] [address] 21238- 0840 02 Jun, 2017 [place] [address] 53837- 1565 May, Generalized anxiety disorder F41.1 ; Major depressive disorder, single episode, unspecified F32.9 ; Other mental disorders complicating , first trimester O99.341 and Adjustment disorder with mixed anxiety and depressed mood F43.23 [place] [address] 34394- 6388 19 May, 2017 care, first in first trimester Z34.01 ; 10 weeks gestation of Z3A.10 ; Glucosuria R81 and Vaginal candidiasis B37.3 [facility] [address] [address] 24 Apr, 2017 [place] [id number] [place] [address] 29375- 1839 Apr, [place] [address] 91374- 2271 Apr, Encounter for test Z32.00 [place] [address] 79683- 3820 Apr, IMMUNIZATIONS No Known Immunizations SOCIAL HISTORY Never Assessed REASON FOR VISIT OB 4wk f/u-tmlisandroonald, wanting to go over labs on liver PLAN OF CARE Activity Details Follow Up 4 Weeks, 4 Weeks Reason: Pending Test UA OB DIP (IN HOUSE) VITAL SIGNS Height 66 in 2017-07-31 Weight 116.9 lbs 2017-07-31 Temperature 98.0 degrees Fahrenheit 2017-07-31 Heart Rate 104 bpm 2017-07-31 Respiratory Rate 20 2017-07-31 BMI 18.868 kg/m2 2017-07-31 Blood pressure systolic 110 mmHg 2017-07-31 Blood pressure diastolic 68 mmHg 2017-07-31 MEDICATIONS Medication Instructions Dosage Frequency Start Date End Date Duration Status Active Zoloft 25 MG Orally Once a day 1/2 tablet 24h Jun, 30 day(s) Active RESULTS No Results PROCEDURES Procedure Date Ordered Result Body Site URINE-NO MICRO July 31, 2017 LAB NOT BILLED BY [facility] July 31, 2017 CHEMILUMINESCENT ASSAY July 31, 2017 VENIPUNCT, ROUTINE* July 31, 2017 INSTRUCTIONS MEDICATIONS ADMINISTERED No Known Medications MEDICAL (GENERAL) HISTORY Type Description Date Surgical History tonsillectomy
--- OUTSIDE RECORDS SUMMARY | 2018-01-02 13:33 | XMS REPORT ---
Author Author JOYA Gonzales Organization [facility] [place] Address [address] [place] [address] Care Team Providers Care Glove Cutter Name Role Phone JOYA Gonzales Unavailable PROBLEMS Type Condition ICD9-CM Code PLL52-XY Code Onset Dates Condition Status SNOMED Code Problem Major depressive disorder, single episode, unspecified F32.9 Active 81853418 Problem Generalized anxiety disorder F41.1 Active 33544921 Problem GBS bacteriuria R82.71 Active 74968829 ALLERGIES No Information ENCOUNTERS Encounter Location Date Diagnosis [facility] [place] [id number] [place] [address] 19778- 2842 Oct, [facility] [place] [id number] [place] [address] 06578- 3393 Oct, [facility] [place] [id number] [place] [address] 67307- 7327 Sep, [facility] [place] [id number] [place] [address] 21884- 3448 Sep, Second trimester Z34.92 and 26 weeks gestation of Z3A.26 [facility] [id number] [place] [address] 97237 -3407 30 Aug, 2017 Vaginal itching N89.8 [facility] [place] [id number] [place] [address] 86503- 8138 12 Aug, 2017 care, first in second trimester Z34.02 ; 22 weeks gestation of Z3A.22 and Evaluate anatomy not seen on prior sonogram Z04.8 [facility] [place] [address] [place] [address] 53178- 8680 July, Generalized anxiety disorder F41.1 and Major depressive disorder, single episode, unspecified F32.9 [place] [address] [address] 6986 10 Jul, 2017 care, first in second trimester Z34.02 and 17 weeks gestation of Z3A.17 [place] [id number] [place] [address] 59512- 9244 Jun, Generalized anxiety disorder F41.1 [place] [id number] [place] [address] 85998- 8642 18 Jun, 2017 Second trimester Z34.92 ; 14 weeks gestation of Z3A.14 and Nausea and vomiting during O21.9 [place] [id number] [place] [address] 37531- 1193 17 Jun, 2017 [place] [id number] [place] [address] 06298- 0425 17 Jun, 2017 Generalized anxiety disorder F41.1 and Major depressive disorder, single episode, unspecified F32.9 [place] [id number] [place] [address] 70168- 1529 16 Jun, 2017 Generalized anxiety disorder F41.1 and Major depressive disorder, single episode, unspecified F32.9 [place] [id number] [place] [address] 89032- 9658 12 Jun, 2017 13 weeks gestation of Z3A.13 ; Itching L29.9 and Encounter for care in second trimester of first Z34.02 [place] [address] [place] [address] 88252- 2102 Jun, [place] [id number] [place] [address] 27724- 6708 May, Generalized anxiety disorder F41.1 ; Major depressive disorder, single episode, unspecified F32.9 ; Other mental disorders complicating , first trimester O99.341 and Adjustment disorder with mixed anxiety and depressed mood F43.23 [place] [id number] [place] [address] 17262- 6866 May, care, first in first trimester Z34.01 ; 10 weeks gestation of Z3A.10 ; Glucosuria R81 and Vaginal candidiasis B37.3 [facility] [address] [place] [address] Apr, [facility] [place] [id number] [address]- 4223 Apr, [facility] [place] [address] [address] 8634 Apr, Encounter for test Z32.00 [facility] [place] [address] [address]- 1118 Apr, IMMUNIZATIONS No Known Immunizations SOCIAL HISTORY Never Assessed REASON FOR VISIT [facility] intake PLAN OF CARE Activity Details Follow Up 2 Weeks Reason:Anxiety, depression VITAL SIGNS MEDICATIONS Medication Instructions Dosage Frequency Start Date End Date Duration Status Unknown Vol-Care Rx 1 MG Orally Once a day 1 tablet 24h May, 30 day(s) Unknown RESULTS No Results PROCEDURES Procedure Date Ordered Result Body Site Psych diagnostic evaluation, new patient June 19, 2017 INSTRUCTIONS MEDICATIONS ADMINISTERED No Known Medications MEDICAL (GENERAL) HISTORY Type Description Date Surgical History tonsillectomy
--- OUTSIDE RECORDS SUMMARY | 2018-01-02 13:33 | XMS REPORT ---
Author Author SERGIO YOMI [facility] Address [address] [place] [address] Care Team Providers Care Percussion Tuner Name Role Phone SERGIO YOMI Unavailable PROBLEMS Type Condition ICD9-CM Code QTB45-KV Code Onset Dates Condition Status SNOMED Code Problem Major depressive disorder, single episode, unspecified F32.9 Active 70861629 Problem Generalized anxiety disorder F41.1 Active 52628164 Problem GBS bacteriuria R82.71 Active 03511551 ALLERGIES No Information ENCOUNTERS Encounter Location Date Diagnosis [place] [id number] [place] [address] 11636- 2589 Oct, [facility] [address] 47133- 6649 Oct, [facility] [id number] [place] [address] 34471- 3446 Sep, [facility] [id number] [place] [address] 23908- 1705 Sep, Second trimester Z34.92 and 26 weeks gestation of Z3A.26 [facility] [id number] [place] [address] 95066 -5409 30 Aug, 2017 Vaginal itching N89.8 [facility] [id number] [place] [address] 63972- 1263 12 Aug, 2017 care, first in second trimester Z34.02 ; 22 weeks gestation of Z3A.22 and Evaluate anatomy not seen on prior sonogram Z04.8 [facility] [id number] [place] [address] 26873- 1596 July, Generalized anxiety disorder F41.1 and Major depressive disorder, single episode, unspecified F32.9 [place] [address] [place] [address] 35168- 8109 10 Jul, 2017 care, first in second trimester Z34.02 and 17 weeks gestation of Z3A.17 [place] [id number] [place] [address] 86039- 8549 Jun, Generalized anxiety disorder F41.1 [place] [id number] [place] [address] 16008- 4836 18 Jun, 2017 Second trimester Z34.92 ; 14 weeks gestation of Z3A.14 and Nausea and vomiting during O21.9 [place] [id number] [place] [address] 82975- 3256 17 Jun, 2017 [place] [id number] [place] [address] 55172- 1761 17 Jun, 2017 Generalized anxiety disorder F41.1 and Major depressive disorder, single episode, unspecified F32.9 [place] [id number] [place] [address] 77128- 3633 16 Jun, 2017 Generalized anxiety disorder F41.1 and Major depressive disorder, single episode, unspecified F32.9 [place] [id number] [place] [address] 73038- 9974 Jun, 13 weeks gestation of Z3A.13 ; Itching L29.9 and Encounter for care in second trimester of first Z34.02 [place] [id number] [place] [address] 93532- 4583 Jun, [place] [id number] [place] [address] 60485- 7290 May, Generalized anxiety disorder F41.1 ; Major depressive disorder, single episode, unspecified F32.9 ; Other mental disorders complicating , first trimester O99.341 and Adjustment disorder with mixed anxiety and depressed mood F43.23 [place] [id number] [place] [address] 45815- 9963 May, care, first in first trimester Z34.01 ; 10 weeks gestation of Z3A.10 ; Glucosuria R81 and Vaginal candidiasis B37.3 [facility] [id number] [address] Apr, [place] [address], [place] [address]- 5328 Apr, [place] [address] [place] [address] 64282- 2000 Apr, Encounter for test Z32.00 [place] [address], [place] [address] 0714 Apr, IMMUNIZATIONS No Known Immunizations SOCIAL HISTORY Never Assessed REASON FOR VISIT Update Demographics - Personal Info PLAN OF CARE VITAL SIGNS MEDICATIONS Unknown Medications RESULTS No Results PROCEDURES No Known procedures INSTRUCTIONS MEDICATIONS ADMINISTERED No Known Medications MEDICAL (GENERAL) HISTORY Type Description Date Surgical History tonsillectomy
--- OUTSIDE RECORDS SUMMARY | 2018-01-02 13:33 | XMS REPORT ---
Author Author SHWETA ARROYO [facility] Address [address] [place] [address] Care Team Providers Care Vacuum Drier Operator Name Role Phone SHWETA ARROYO Unavailable PROBLEMS Type Condition ICD9-CM Code IVP51-ZZ Code Onset Dates Condition Status SNOMED Code Problem Major depressive disorder, single episode, unspecified F32.9 Active 07923923 Problem Generalized anxiety disorder F41.1 Active 50971814 Problem GBS bacteriuria R82.71 Active 86541713 ALLERGIES No Information ENCOUNTERS Encounter Location Date Diagnosis [facility] [id number] [place] [address] 38655- 2671 Sep, [facility] [id number] [place] [address] 63843 -2489 Aug, Vaginal itching N89.8 [facility] [id number] [place] [address] 38408- 0376 12 Aug, 2017 care, first in second trimester Z34.02 ; 22 weeks gestation of Z3A.22 and Evaluate anatomy not seen on prior sonogram Z04.8 [facility] [id number] [place] [address] 77947- 4576 July, Generalized anxiety disorder F41.1 and Major depressive disorder, single episode, unspecified F32.9 [facility] [address] [place] [address] 56283- 2477 July, care, first in second trimester Z34.02 and 17 weeks gestation of Z3A.17 [facility] [id number] [place] [address] 13261- 9655 Jun, Generalized anxiety disorder F41.1 [facility] [id number] [place] [address] 62391- 7749 18 Jun, 2017 Second trimester Z34.92 ; 14 weeks gestation of Z3A.14 and Nausea and vomiting during O21.9 [place] [id number] [place] [address] 23658- 3747 Jun, [place] [id number] [place] [address] 56813- 8855 17 Jun, 2017 Generalized anxiety disorder F41.1 and Major depressive disorder, single episode, unspecified F32.9 [place] [id number] [place] [address] 66025- 4503 16 Jun, 2017 Generalized anxiety disorder F41.1 and Major depressive disorder, single episode, unspecified F32.9 [place] [id number] [place] [address] 06770- 3784 12 Jun, 2017 13 weeks gestation of Z3A.13 ; Itching L29.9 and Encounter for care in second trimester of first Z34.02 [place] [id number] [place] [address] 50219- 6561 02 Jun, 2017 [place] [id number] [place] [address] 62739- 5205 May, Generalized anxiety disorder F41.1 ; Major depressive disorder, single episode, unspecified F32.9 ; Other mental disorders complicating , first trimester O99.341 and Adjustment disorder with mixed anxiety and depressed mood F43.23 [place] [address] [place] [address] 42879- 2726 May, care, first in first trimester Z34.01 ; 10 weeks gestation of Z3A.10 ; Glucosuria R81 and Vaginal candidiasis B37.3 [facility] [id number] [place] [address] Apr, [place] [address] [place] [address] 85457- 1566 Apr, [place] [id number] [place] [address] 71921- 0192 Apr, Encounter for test Z32.00 [facility] [address] [facility] [id number] [address] 2003 Apr, IMMUNIZATIONS No Known Immunizations SOCIAL HISTORY Never Assessed REASON FOR VISIT test (walk-in)--[facility] PLAN OF CARE VITAL SIGNS MEDICATIONS Unknown Medications RESULTS Name Result Date Reference Range TEST, URINE (IN HOUSE) 2017-05-09 RESULTS POSITIVE Lot # [id number] Control + Exp date 09/2018 PROCEDURES Procedure Date Ordered Result Body Site URINE TEST May 09, 2017 INSTRUCTIONS MEDICATIONS ADMINISTERED No Known Medications MEDICAL (GENERAL) HISTORY Type Description Date Surgical History tonsillectomy
--- OUTSIDE RECORDS SUMMARY | 2018-01-02 13:33 | XMS REPORT ---
Author Author SERGIO YOMI [facility] Address [address] [place] [address] Care Team Providers Care Shuttle Bus Driver Name Role Phone SERGIOCHARITYYOMI Unavailable PROBLEMS Type Condition ICD9-CM Code DPJ34-DG Code Onset Dates Condition Status SNOMED Code Problem Major depressive disorder, single episode, unspecified F32.9 Active 46961264 Problem Generalized anxiety disorder F41.1 Active 28856595 Problem GBS bacteriuria R82.71 Active 54392371 ALLERGIES Substance Reaction Event Type Date Status Sulfamethoxazole-Trimethoprim Hives Drug Allergy May, Active Penicillin V Potassium Unknown Drug Allergy May, Active ENCOUNTERS Encounter Location Date Diagnosis [facility] [id number] [place] [address] 95271- 6928 Oct, [facility] [id number] [place] [address] 32350- 5624 Oct, [facility] [id number] [place] [address] 89371- 5197 Sep, [facility] [id number] [place] [address] 82514- 0839 Sep, Second trimester Z34.92 and 26 weeks gestation of Z3A.26 [facility] [id number] [place] [address] 18419 -9960 30 Aug, 2017 Vaginal itching N89.8 [facility] [address] 43380- 5073 12 Aug, 2017 care, first in second trimester Z34.02 ; 22 weeks gestation of Z3A.22 and Evaluate anatomy not seen on prior sonogram Z04.8 [facility] [id number] [place] [address] 40612- 4761 July, Generalized anxiety disorder F41.1 and Major depressive disorder, single episode, unspecified F32.9 [place] [id number] [place] [address] 51511- 1778 10 Jul, 2017 care, first in second trimester Z34.02 and 17 weeks gestation of Z3A.17 [place] [id number] [place] [address] 52910- 0038 Jun, Generalized anxiety disorder F41.1 [place] [id number] [place] [address] 88658- 8218 18 Jun, 2017 Second trimester Z34.92 ; 14 weeks gestation of Z3A.14 and Nausea and vomiting during O21.9 [place] [id number] [place] [address] 68121- 1323 17 Jun, 2017 [place] [id number] [place] [address] 82590- 9790 17 Jun, 2017 Generalized anxiety disorder F41.1 and Major depressive disorder, single episode, unspecified F32.9 [place] [id number] [place] [address] 01132- 1111 16 Jun, 2017 Generalized anxiety disorder F41.1 and Major depressive disorder, single episode, unspecified F32.9 [place] [id number] [place] [address] 64206- 6340 12 Jun, 2017 13 weeks gestation of Z3A.13 ; Itching L29.9 and Encounter for care in second trimester of first Z34.02 [place] [id number] [place] [address] 34052- 9050 Jun, [place] [address] 27910- 4720 May, Generalized anxiety disorder F41.1 ; Major depressive disorder, single episode, unspecified F32.9 ; Other mental disorders complicating , first trimester O99.341 and Adjustment disorder with mixed anxiety and depressed mood F43.23 [place] [id number], [place] [address]- 3771 May, care, first in first trimester Z34.01 ; 10 weeks gestation of Z3A.10 ; Glucosuria R81 and Vaginal candidiasis B37.3 [facility] [id number] [address] Apr, [place] [id number] [place] [address] 71732- 3722 Apr, [place] [address] [place] [address] 99349- 6741 Apr, Encounter for test Z32.00 [place] [address] [place] [address] 18057- 1867 Apr, IMMUNIZATIONS No Known Immunizations SOCIAL HISTORY Never Assessed REASON FOR VISIT OB-intake--Luis Enrique, --pt dxd with BV only took 2 pills of medication then found out of she so she stopped them. , --questions she has UTI or yeast infection. , --would like to get a prescription PLAN OF CARE Activity Details Follow Up 4 Weeks, 4 Weeks Reason: VITAL SIGNS Height 66 in 2017-06-09 Weight 106 lbs 2017-06-09 Temperature 98.8 degrees Fahrenheit 2017-06-09 Heart Rate 80 bpm 2017-06-09 Respiratory Rate 20 2017-06-09 BMI 17.109 kg/m2 2017-06-09 Blood pressure systolic 110 mmHg 2017-06-09 Blood pressure diastolic 68 mmHg 2017-06-09 MEDICATIONS Medication Instructions Dosage Frequency Start Date End Date Duration Status Active Vol-Care Rx 1 MG Orally Once a day 1 tablet 24h May, 30 day(s) Active Clotrimazole-7 1 % Vaginal Once a day 1 application at bedtime 24h May, May, 7 day(s) Active RESULTS No Results PROCEDURES Procedure Date Ordered Result Body Site URINALYSIS, AUTO, W/O SCOPE June 09, 2017 LAB NOT BILLED BY [facility] June 09, 2017 VENIPUNCT, ROUTINE* June 09, 2017 GLYCATED HEMOGLOBIN TEST June 09, 2017 No Charge June 09, 2017 GLUCOSE BLOOD TEST June 09, 2017 DRUG TEST PRSMV DIR OPT OBS June 09, 2017 INSTRUCTIONS MEDICATIONS ADMINISTERED No Known Medications MEDICAL (GENERAL) HISTORY Type Description Date Surgical History tonsillectomy
--- OUTSIDE RECORDS SUMMARY | 2018-01-02 13:33 | XMS REPORT ---
Author Author SERGIO YOMI [facility] Address [address] [place] [address] Care Team Providers Care Powerhouse Electrician Name Role Phone SERGIOCHARITYYOMI Unavailable PROBLEMS Type Condition ICD9-CM Code YRC01-NQ Code Onset Dates Condition Status SNOMED Code Problem Major depressive disorder, single episode, unspecified F32.9 Active 58593062 Problem Generalized anxiety disorder F41.1 Active 95430845 Problem GBS bacteriuria R82.71 Active 01588357 ALLERGIES Substance Reaction Event Type Date Status Sulfamethoxazole-Trimethoprim Hives Drug Allergy Jun, Active Penicillin V Potassium Unknown Drug Allergy Jun, Active ENCOUNTERS Encounter Location Date Diagnosis [facility] [id number] [place] [address] 57851- 4068 Oct, [facility] [id number] [place] [address] 97819- 4300 Oct, [facility] [id number] [place] [address] 58645- 0126 Sep, [facility] [id number] [place] [address] 49287- 5039 Sep, Second trimester Z34.92 and 26 weeks gestation of Z3A.[address] [facility] [id number] [place] [address] 51453 -5086 30 Aug, 2017 Vaginal itching N89.8 [facility] [address] 81555- 1439 12 Aug, 2017 care, first in second trimester Z34.02 ; 22 weeks gestation of Z3A.22 and Evaluate anatomy not seen on prior sonogram Z04.8 [facility] [id number] [place] [address] 24157- 4610 July, Generalized anxiety disorder F41.1 and Major depressive disorder, single episode, unspecified F32.9 [place] [id number] [place] [address] 08433- 7094 10 Jul, 2017 care, first in second trimester Z34.02 and 17 weeks gestation of Z3A.17 [place] [id number] [place] [address] 39217- 9748 Jun, Generalized anxiety disorder F41.1 [place] [id number] [place] [address] 06146- 1271 18 Jun, 2017 Second trimester Z34.92 ; 14 weeks gestation of Z3A.14 and Nausea and vomiting during O21.9 [place] [id number] [place] [address] 18623- 6819 17 Jun, 2017 [place] [id number] [place] [address] 13376- 5192 17 Jun, 2017 Generalized anxiety disorder F41.1 and Major depressive disorder, single episode, unspecified F32.9 [place] [id number] [place] [address] 12605- 6688 16 Jun, 2017 Generalized anxiety disorder F41.1 and Major depressive disorder, single episode, unspecified F32.9 [place] [id number] [place] [address] 96493- 7304 12 Jun, 2017 13 weeks gestation of Z3A.13 ; Itching L29.9 and Encounter for care in second trimester of first Z34.02 [place] [id number] [place] [address] 34100- 5541 Jun, [place] [address] 97412- 0237 May, Generalized anxiety disorder F41.1 ; Major depressive disorder, single episode, unspecified F32.9 ; Other mental disorders complicating , first trimester O99.341 and Adjustment disorder with mixed anxiety and depressed mood F43.23 [place] [id number] [address]- 2144 May, care, first in first trimester Z34.01 ; 10 weeks gestation of Z3A.10 ; Glucosuria R81 and Vaginal candidiasis B37.3 [facility] [address] [id number] [address] Apr, [place] [id number] [place] [address] 10222- 0932 Apr, [place] [address], [place] [address]- 2158 Apr, Encounter for test Z32.00 [place] [address], [place] [address]- 1316 Apr, IMMUNIZATIONS No Known Immunizations SOCIAL HISTORY Never Assessed REASON FOR VISIT OB f/u--tcuppettRN, -c/o itching on legs that is worsening. Reports is worse at night PLAN OF CARE Activity Details Follow Up 4 Weeks, 4 Weeks Reason: VITAL SIGNS Height 66 in 2017-07-03 Weight 111.5 lbs 2017-07-03 Temperature 98.2 degrees Fahrenheit 2017-07-03 Heart Rate 72 bpm 2017-07-03 Respiratory Rate 16 2017-07-03 BMI 17.997 kg/m2 2017-07-03 Blood pressure systolic 100 mmHg 2017-07-03 Blood pressure diastolic 52 mmHg 2017-07-03 MEDICATIONS Medication Instructions Dosage Frequency Start Date End Date Duration Status Not-Taking Vol-Care Rx 1 MG Orally Once a day 1 tablet 24h May, 30 day(s) Active RESULTS No Results PROCEDURES Procedure Date Ordered Result Body Site URINE-NO MICRO July 03, 2017 LAB NOT BILLED BY [facility] July 03, 2017 VENIPUNCT, ROUTINE* July 03, 2017 INSTRUCTIONS MEDICATIONS ADMINISTERED No Known Medications MEDICAL (GENERAL) HISTORY Type Description Date Surgical History tonsillectomy
--- OUTSIDE RECORDS SUMMARY | 2018-01-02 13:33 | XMS REPORT ---
Author Author SERGIO YOMI [facility] Address [address] [place] [address] Care Team Providers Care Podiatric Medicine Professor Name Role Phone YOMI HILL Unavailable PROBLEMS Type Condition ICD9-CM Code [id number] Code Onset Dates Condition Status SNOMED Code Problem Major depressive disorder, single episode, unspecified F32.9 Active 78672725 Problem Generalized anxiety disorder F41.1 Active 25121033 Problem GBS bacteriuria R82.71 Active 54111973 ALLERGIES No Information ENCOUNTERS Encounter Location Date Diagnosis [facility] [place] [id number] [place] [phone] Sep, [facility] [id number] [place] [phone] 30 Aug, 2017 Vaginal itching N89.8 [facility] [place] [id number] [place] [address] 25758- 6112 12 Aug, 2017 care, first in second trimester Z34.02 ; 22 weeks gestation of Z3A.22 and Evaluate anatomy not seen on prior sonogram Z04.8 [facility] [place] [address] [place] [address]47[address] July, Generalized anxiety disorder F41.1 and Major depressive disorder, single episode, unspecified F32.9 [facility] [place] [address] [place] [address] 12984- 6756 July, care, first in second trimester Z34.02 and 17 weeks gestation of Z3A.17 [facility] [place] [id number] [place] [address] 71746- 5314 Jun, Generalized anxiety disorder F41.1 [facility] [place] [address] [address] 18 Jun, 2017 Second trimester Z34.92 ; 14 weeks gestation of Z3A.14 and Nausea and vomiting during O21.9 [address] [address] [address] [place] [address] 16302- 9176 17 Jun, 2017 [place] [id number] [place] [address] 29856- 1429 17 Jun, 2017 Generalized anxiety disorder F41.1 and Major depressive disorder, single episode, unspecified F32.9 [place] [id number] [place] [address] 34041- 0164 Jun, Generalized anxiety disorder F41.1 and Major depressive disorder, single episode, unspecified F32.9 [place] [id number] [place] [address] 63827- 8679 12 Jun, 2017 13 weeks gestation of Z3A.13 ; Itching L29.9 and Encounter for care in second trimester of first Z34.02 [place] [id number] [place] [address] 48360- 8643 Jun, [place] [id number] [place] [address] 92682- 7971 May, Generalized anxiety disorder F41.1 ; Major depressive disorder, single episode, unspecified F32.9 ; Other mental disorders complicating , first trimester O99.341 and Adjustment disorder with mixed anxiety and depressed mood F43.23 [id number] [place] [address] 41241- 3439 May, care, first in first trimester Z34.01 ; 10 weeks gestation of Z3A.10 ; Glucosuria R81 and Vaginal candidiasis B37.3 [facility] [address] [place] [id number] [place] [phone] Apr, [place] [address] [address] [place] [address]87- [address]653 Apr, [place] [id number] [address] Apr, Encounter for test Z32.00 [facility] [place] [address] [facility] [id number] [phone] Apr, IMMUNIZATIONS No Known Immunizations SOCIAL HISTORY Never Assessed REASON FOR VISIT after hours call phone PLAN OF CARE VITAL SIGNS MEDICATIONS Unknown Medications RESULTS No Results PROCEDURES No Known procedures INSTRUCTIONS MEDICATIONS ADMINISTERED No Known Medications MEDICAL (GENERAL) HISTORY Type Description Date Surgical History tonsillectomy
--- OUTSIDE RECORDS SUMMARY | 2018-01-02 13:33 | XMS REPORT ---
Author Author SERGIO YOMI [facility] Address [address] [place] [address] Care Team Providers Care Detacker Name Role Phone SERGIOCHARITY MORAHANY Unavailable PROBLEMS Type Condition ICD9-CM Code [id number] Code Onset Dates Condition Status SNOMED Code Problem Major depressive disorder, single episode, unspecified F32.9 Active 64305954 Problem Generalized anxiety disorder F41.1 Active 90749516 Problem GBS bacteriuria R82.71 Active 67247660 ALLERGIES Substance Reaction Event Type Date Status Sulfamethoxazole-Trimethoprim Hives Drug Allergy Apr, Active Penicillin V Potassium Unknown Drug Allergy Apr, Active ENCOUNTERS Encounter Location Date Diagnosis [facility] [id number] [place] [phone] Sep, [facility] [id number] [place] [phone] [phone] 30 Aug, 2017 Vaginal itching N89.8 [facility] [id number] [place] [address] 73753- 3[address] 12 Aug, 2017 care, first in second trimester Z34.02 ; 22 weeks gestation of Z3A.22 and Evaluate anatomy not seen on prior sonogram Z04.8 [facility] [id number] [place] [address] 96279- 4699 July, Generalized anxiety disorder F41.1 and Major depressive disorder, single episode, unspecified F32.9 [id number] [place] [address] 20150- 5646 July, care, first in second trimester Z34.02 and 17 weeks gestation of Z3A.17 [place] [address] [address] Jun, Generalized anxiety disorder F41.1 [address] [address] [place] [address] 69420- 0956 18 Jun, 2017 Second trimester Z34.92 ; 14 weeks gestation of Z3A.14 and Nausea and vomiting during O21.9 [place] [id number] [place] [address] 32394- 6594 17 Jun, 2017 [place] [id number] [place] [address] 58864- 3512 17 Jun, 2017 Generalized anxiety disorder F41.1 and Major depressive disorder, single episode, unspecified F32.9 [place] [id number] [place] [address] 75111- 5790 16 Jun, 2017 Generalized anxiety disorder F41.1 and Major depressive disorder, single episode, unspecified F32.9 [place] [id number] [place] [address] 16155- 1756 12 Jun, 2017 13 weeks gestation of Z3A.13 ; Itching L29.9 and Encounter for care in second trimester of first Z34.02 [place] [id number] [place] [address] 26024- 5791 02 Jun, 2017 [place] [id number] [place] [address] 08497- 6034 May, Generalized anxiety disorder F41.1 ; Major depressive disorder, single episode, unspecified F32.9 ; Other mental disorders complicating , first trimester O99.341 and Adjustment disorder with mixed anxiety and depressed mood F43.23 [place] [address] [address] [place] [address] 44609- 8[address] May, care, first in first trimester Z34.01 ; 10 weeks gestation of Z3A.10 ; Glucosuria R81 and Vaginal candidiasis B37.3 [facility] [address] [place] [id number] [place] [phone] Apr, [place] [id number] [place] [address], [place] [address] Apr, [facility] [address] [facility] [id number] [address] Apr, Encounter for test Z32.00 [facility] [address] [facility] [id number] [address] Apr, IMMUNIZATIONS No Known Immunizations SOCIAL HISTORY Never Assessed REASON FOR VISIT OB Flowsheet History---ADaviedRN PLAN OF CARE VITAL SIGNS MEDICATIONS Unknown Medications RESULTS No Results PROCEDURES No Known procedures INSTRUCTIONS MEDICATIONS ADMINISTERED No Known Medications MEDICAL (GENERAL) HISTORY Type Description Date Surgical History tonsillectomy
[2018-01-02] MEDS ORDERED: CATHETER FLUSH 10 ML SYR IV SCH ×2 (14:00→22:00)
[2018-01-02] MEDS ORDERED: RANI150T11 PO (14:38)
[2018-01-02] MEDS ORDERED: PREN-142 PO (14:38)
--- NOTE | 2018-01-02 14:40 | History & Physical-OB ---
OB - Chief Complaint & HPI Date/Time Date of Admission: Date of Admission: Jan 02, 2018 at 7:40 am Date seen by a Provider: Jan 02, 2018 Time Seen by a Provider: 08:15 Chief Complaint/History OB-Reason for Admission/Chief: Onset of Labor Hx : 1 Hx Para: 0 Expected Date of Delivery: Jan 05, 2018 Gestational Age in Weeks: 39 Gestational Age in Days: 4 History of Labs O+, antibody neg, RI. HIV/HepB/RPR NR. GC/chlamydia neg. GBS bacteriuria. Allergies and Home Medications Allergies Coded Allergies: Sulfa (Sulfonamide Antibiotics) (Verified Allergy, Unknown, HIVES, ) penicillin V (Verified Allergy, Unknown, 01/02/18) Home Medications Vit No.124/Iron/FA 1 Each Tablet, 1 EACH PO DAILY, (Reported) Ranitidine HCl 150 Mg Tablet, 150 MG PO BID, (Reported) Patient Home Medication List Home Medication List Reviewed: Yes OB - History Hx of Present Care: Yes Ultrasounds: Normal mid trimester US Obstetrical Complications: None (GERD) Medical Complications: Psychiatric (Depression/anxiety not on current medications) Obstetrical History Hx : 1 Hx Para: 0 Patient Past Medical History PMHx: Anxiety SurgHx: Tonsillectomy Social History/Family History HIV/AIDS: No Recent Infectious Disease Expo: No Sexually Transmitted Disease: Yes (chlamydia prior to ) Alcohol Use: Denies Use Recreational Drug Use: Yes (history of THC) Smoking Cessation: Former smoker Immunizations Hepatitis A: No Hepatitis B: No Tetanus Booster (TDap): Less than 5yrs (10/27/17) Rubella: immune RPR/VDRL: Negative GBS Status: Positive HBsAG: Negative OB - Admission Exam Physical Exam Vitals: Vital Signs 01/02/18 01/02/18 11:45 13:15 Temp 97.7 Pulse 98 Resp 18 B/P (MAP) 115/74 (88) Pulse Ox 100 O2 Delivery Room Air HEENT: NCAT Abdomen: Gravid Extremities: Normal Cervical Dilatation: 5cm Effacement: Other (90) Station: +1 Membranes: Intact Accelerations: Accelerations Present Decelerations: No Decelerations Short Term Variability: Present Landscape Architect Variability: Average (6-25) Contractions on Admission: < 5 Minutes Apart Labs Laboratory Tests Test 01/02/18 07:57 Range/Units White Blood Count 14.6 H 4.3-11.0 10^3/uL Red Blood Count 4.33 L 4.35-5.85 10^6/uL Hemoglobin 13.4 11.5-16.0 G/DL Hematocrit 39 35-52 % Mean Corpuscular Volume 91 80-99 FL Mean Corpuscular Hemoglobin 31 25-34 PG Mean Corpuscular Hemoglobin Concent 34 32-36 G/DL Red Cell Distribution Width 14.4 10.0-14.5 % Platelet Count 354 130-400 10^3/uL Mean Platelet Volume 10.3 7.4-10.4 FL Neutrophils (%) (Auto) 77 H 42-75 % Lymphocytes (%) (Auto) 17 12-44 % Monocytes (%) (Auto) 6 0-12 % Eosinophils (%) (Auto) 0 0-10 % Basophils (%) (Auto) 0 0-10 % Neutrophils # (Auto) 11.2 H 1.8-7.8 X 10^3 Lymphocytes # (Auto) 2.5 1.0-4.0 X 10^3 Monocytes # (Auto) 0.9 0.0-1.0 X 10^3 Eosinophils # (Auto) 0.0 0.0-0.3 10^3/uL Basophils # (Auto) 0.0 0.0-0.1 10^3/uL Neutrophils % (Manual) 81 % Lymphocytes % (Manual) 11 % Monocytes % (Manual) 8 % Blood Morphology Comment NORMAL OB - Assessment/Plan/Diagnosis Assessment Assessment: active labor, group B positive strep Admission Dx G1 at 39 weeks gestation Active labor GBS bacteriuria Admission Status: Inpatient Order (span 2 midnights) Reason for Inpatient Admission: Labor, delivery and course Plan Plan: Expectant Management Other Plan Vancomycin for GBS pos with severe PCN allergy. YOMI HILL MD Jan 02, 2018 2:40 pm
[2018-01-02] MEDS ORDERED: OXYTOCIN/NORMAL SALINE 500 ML IV ONE (15:49)
[2018-01-02] MEDS ORDERED: OXYTOCIN/NORMAL SALINE 500 ML IV SCH ×2 (17:40→21:05)
[2018-01-02] MEDS ORDERED: D5W IV SCH (17:45)
[2018-01-02] MEDS ORDERED: GENTAMICIN IV SCH (17:45)
[2018-01-02 17:52] LABS: AMPHETAMINE SCREEN, URINE NEGATIVE (NEGATIVE); BARBITURATE SCREEN URINE NEGATIVE (NEGATIVE); BENZODIAZEPINES SCREEN URINE NEGATIVE (NEGATIVE); CANNABINOID SCREEN, URINE POSITIVE (NEGATIVE); COCAINE SCREEN URINE NEGATIVE (NEGATIVE); METHADONE STAT NEGATIVE (NEGATIVE); METHAMPHETAMINE SCREEN URINE S NEGATIVE (NEGATIVE); OPIATE SCREEN URINE NEGATIVE (NEGATIVE); OXYCODONE STAT NEGATIVE (NEGATIVE); PROPOXYPHENE STAT NEGATIVE (NEGATIVE); TRICYCLIC ANTIDEPRESSANTS SCRE NEGATIVE (NEGATIVE)
[2018-01-02] MEDS ORDERED: NS (IVPB) 250 ML ONE (19:44)
[2018-01-02] MEDS ORDERED: VANCOMYCIN 1000 MG/VIAL ONE (19:44)
--- NOTE | 2018-01-02 19:47 | OB Labor & Delivery Record ---
Vag Delivery Note Vag Delivery Note Date of Delivery: 01/02/18 Preoperative Diagnosis: Estrella Heaton is a 22 /Para 1 / 0,Gestational Age (wks)39with 4d Postoperative Diagnosis: Same Surgeon: YOMI HILL Anesthesia: Epidural Delivery Type: Findings: Viable female infant, apgars 6/8, weight 7#4 Lacerations: Bilateral periurethral, left anterior labial Intact placenta with 3 vessel cord. Nuchal cord x 1, no body cord or shoulder dystocia Estimated Blood Loss: 250 ml Complications: None Condition: Stable Description of Procedure: The patient is a G1 who presented in active labor. She was admitted and informed consent was obtained. Her labor course was remarkable for fever and tachycardia. She progressed to complete dilatation and began to push. She was then set up for delivery. The 's head was delivered atraumatically in the ASHLEY position. Nuchal cord x 1 easily reduced. The shoulders and remainder of the infant's body were then delivered without difficulty. Upon delivery, the infant was vigorous and placed on maternal abdomen. After a delay the cord was doubly clamped and cut and the infant was handed off to the pediatric staff. An intact placenta with 3-vessel cord delivered via Elder and there was found to be minimal bleeding.~ Vigorous fundal massage was performed and the fundus was found to be firm. IV oxytocin was given. Examination of the vagina and perineum revealed a bilateral periurethral laceration repaired in the simple interrupted fashion with 3-0 rapide suture. Following the repair, sponge, instrument and needle counts were correct. Mom and baby were both in stable condition in the labor suite. Vitals - Labs Vital Signs - I&O Vital Signs Date Time Temp Pulse Resp B/P (MAP) Pulse Ox O2 Delivery O2 Flow Rate FiO2 01/02/18 19:00 96 18 120/56 (77) Room Air 01/02/18 18:55 100.9 01/02/18 18:45 148 18 128/69 (88) Room Air 01/02/18 18:30 18 Room Air 01/02/18 18:15 93 18 123/67 (85) 100 Room Air 01/02/18 18:00 100.2 84 18 118/71 (87) 100 Room Air 01/02/18 17:45 103 18 120/71 (87) 94 Room Air 01/02/18 17:30 101 18 119/69 (86) 100 Room Air 01/02/18 17:25 100.7 01/02/18 17:15 85 18 108/82 (91) 100 Room Air 01/02/18 17:00 82 18 117/65 (82) 97 Room Air 01/02/18 16:45 84 18 114/67 (83) 100 Room Air 01/02/18 16:30 99.5 99 18 120/68 (85) 96 Room Air 01/02/18 16:22 100.6 01/02/18 16:15 102 18 118/75 (89) 99 Room Air 01/02/18 16:00 90 18 117/74 (88) 100 Room Air 01/02/18 15:45 72 18 121/70 (87) 100 Room Air 01/02/18 15:30 84 18 132/73 (92) 99 Room Air 01/02/18 15:15 102 18 130/66 (87) 100 Room Air 01/02/18 15:00 99.6 101 18 126/75 (92) 93 Room Air 01/02/18 14:45 70 18 126/75 (92) 100 Room Air 01/02/18 14:30 85 18 137/61 (86) 100 Room Air 01/02/18 14:15 127 18 92 Room Air 01/02/18 14:00 94 18 121/82 (95) 100 Room Air 01/02/18 13:45 80 18 159/75 (103) 100 Room Air 01/02/18 13:30 98 18 115/74 (88) 100 Room Air 01/02/18 13:15 98 18 115/74 (88) 100 Room Air 01/02/18 13:00 78 18 116/71 (86) 100 Room Air 01/02/18 12:45 69 18 100 Room Air 01/02/18 12:30 96 18 108/76 (87) 100 Room Air 01/02/18 12:15 123 18 111/72 (85) 100 Room Air 01/02/18 12:00 80 18 115/69 (84) 100 Room Air 01/02/18 11:45 97.7 80 18 115/80 (92) 99 Room Air 01/02/18 11:30 77 18 112/68 (83) 99 Room Air 01/02/18 11:15 71 18 116/70 (85) 98 Room Air 01/02/18 11:00 90 18 105/63 (77) 99 Room Air 01/02/18 10:45 75 18 113/66 (82) 99 Room Air 01/02/18 10:30 80 20 104/65 (78) 99 Room Air 01/02/18 10:15 80 20 104/65 (78) 99 Room Air 01/02/18 10:00 88 20 105/63 (77) 97 Room Air 01/02/18 09:45 123 20 100/57 (71) 98 Room Air 01/02/18 09:30 126 20 90/50 (63) 100 Room Air 01/02/18 09:15 128 20 99/56 (70) 100 Room Air 01/02/18 09:11 99 18 90/51 (64) 97 Room Air 01/02/18 09:10 99 18 92/53 (66) 97 Room Air 01/02/18 09:05 95 18 102/67 (79) 100 Room Air 01/02/18 09:00 71 20 134/58 (83) 99 Room Air 01/02/18 08:55 73 20 116/68 (84) 100 Room Air 01/02/18 08:50 90 20 121/81 (94) 100 Room Air 01/02/18 08:45 92 20 115/86 (96) 100 Room Air 01/02/18 08:20 64 20 127/77 (94) Room Air 01/02/18 06:00 98.7 85 18 113/63 (80) Room Air Labs Laboratory Tests 01/02/18 07:57: White Blood Count 14.6H, Red Blood Count 4.33L, Hemoglobin 13.4, Hematocrit 39, Mean Corpuscular Volume 91, Mean Corpuscular Hemoglobin 31, Mean Corpuscular Hemoglobin Concent 34, Red Cell Distribution Width 14.4, Platelet Count 354, Mean Platelet Volume 10.3, Neutrophils (%) (Auto) 77H, Lymphocytes (%) (Auto) 17 , Monocytes (%) (Auto) 6, Eosinophils (%) (Auto) 0, Basophils (%) (Auto) 0, Neutrophils # (Auto) 11.2H, Lymphocytes # (Auto) 2.5, Monocytes # (Auto) 0.9, Eosinophils # (Auto) 0.0, Basophils # (Auto) 0.0, Neutrophils % (Manual) 81, Lymphocytes % (Manual) 11, Monocytes % (Manual) 8, Blood Morphology Comment NORMAL 01/02/18 16:50: Urine Opiates Screen NEGATIVE, Urine Oxycodone Screen NEGATIVE, Urine Methadone Screen NEGATIVE, Urine Propoxyphene Screen NEGATIVE, Urine Barbiturates Screen NEGATIVE, Ur Tricyclic Antidepressants Screen NEGATIVE, Urine Phencyclidine Screen NEGATIVE, Urine Amphetamines Screen NEGATIVE, Urine Methamphetamines Screen NEGATIVE, Urine Benzodiazepines Screen NEGATIVE, Urine Cocaine Screen NEGATIVE, Urine Cannabinoids Screen POSITIVEYOMI VILA MD Jan 02, 2018 7:47 pm
[2018-01-02] MEDS ORDERED: IBUPROFEN 600 MG (MOTRIN) TAB PO ONE (20:40)
[2018-01-02] MEDS: IBUPROFEN 600 MG (MOTRIN) TAB PO SCH (21:09)
[2018-01-02] MEDS ORDERED: WITCH HAZEL(TUCKS) 40 EA JAR TOP PRN (21:15)
[2018-01-02] MEDS ORDERED: BENZOCAINE/MENTHOL (DERMOPLAST) 56 ML CAN TP PRN (21:15)
[2018-01-03] MEDS ORDERED: HYDROcodone/APAP 5 MG/325 MG (LORTAB) TAB ONE (00:41)
[2018-01-03] MEDS: HYDROcodone/APAP 5 MG/325 MG (LORTAB) TAB PO PRN ×2 (01:00→10:05)
[2018-01-03 02:00] VITALS: BP 108/52
[2018-01-03] MEDS: IBUPROFEN 600 MG (MOTRIN) TAB PO SCH ×4 (03:26→22:56)
[2018-01-03 04:38] LABS: BASOPHILS % (AUTO) 0 % (0-10); EOSINOPHILS % (AUTO) 0 % (0-10); HEMATOCRIT 28 % (35-52); HEMOGLOBIN 9.4 G/DL (11.5-16.0); LYMPHOCYTES # (AUTO) 2.5 X 10^3 (1.0-4.0); LYMPHOCYTES % (AUTO) 17 % (12-44); MEAN CORPUSCULAR HEMOGLOBIN 32 PG (25-34); MEAN CORPUSCULAR HGB CONC 34 G/DL (32-36); MEAN CORPUSCULAR VOLUME 94 FL (80-99); MONOCYTES # (AUTO) 1.7 X 10^3 (0.0-1.0); MONOCYTES % (AUTO) 11 % (0-12); NEUTROPHILS # (AUTO) 10.8 X 10^3 (1.8-7.8); NEUTROPHILS % (AUTO) 72 % (42-75); PLATELET COUNT 241 10^3/uL (130-400); RED BLOOD COUNT 2.94 10^6/uL (4.35-5.85); RED CELL DISTRIBUTION WIDTH 14.2 % (10.0-14.5)
[2018-01-03 05:39] VITALS: BP 101/49
[2018-01-03 10:10] VITALS: BP 119/71
--- NOTE | 2018-01-03 10:52 | Anesthesia-Regional Post-Op ---
Regional Patient Condition Mental Status: Alert, Oriented x3 Circulation: Same as Pre-Op Headache: Absent Sensation: Full Recovery Motor Block: Absent Post Op Complications Complications None Follow Up Care/Instructions Patient Instructions None needed. Anesthesia/Patient Condition Patient is doing well, no complaints, stable vital signs, no apparent adverse anesthesia problems. No complications reported per nursing. BRIANA REDD CRNA Jan 03, 2018 10:52
--- NOTE | 2018-01-03 12:38 | Progress Note (SOAP) ---
Subjective Subjective/Events-last exam Patient states that she is having alot of pain. No fevers O/N. Breast feeding infant well. Lochia same a normal period. Tolerating diet and ambulation Review of Systems Date Seen by Provider: Jan 03, 2018 Time Seen by Provider: 09:00 Pulmonary: No Dyspnea, No Cough Cardiovascular: No: Chest Pain Gastrointestinal: Abdominal Pain; No: Nausea, Vomiting Genitourinary: No Dysuria, No Frequency Objective Exam Last Set of Vital Signs Vital Signs Date Time Temp Pulse Resp B/P (MAP) Pulse Ox O2 Delivery O2 Flow Rate FiO2 01/03/18 05:39 98.2 75 18 101/49 (66) Room Air 01/02/18 18:15 100 Capillary Refill : I&O Intake and Output 01/03/18 00:00 Daily Weight Change No General: Alert, Oriented X3, Cooperative, No Acute Distress Lungs: Clear to Auscultation, Normal Air Movement Heart: Regular Rate, No Murmurs Abdomen: Soft, No Tenderness, No Masses, Other (Fundus firm and below umbilicus ) Extremities: No Edema, No Tenderness/Swelling Results/Procedures Lab Laboratory Tests 01/02/18 16:50: Urine Opiates Screen NEGATIVE, Urine Oxycodone Screen NEGATIVE, Urine Methadone Screen NEGATIVE, Urine Propoxyphene Screen NEGATIVE, Urine Barbiturates Screen NEGATIVE, Ur Tricyclic Antidepressants Screen NEGATIVE, Urine Phencyclidine Screen NEGATIVE, Urine Amphetamines Screen NEGATIVE, Urine Methamphetamines Screen NEGATIVE, Urine Benzodiazepines Screen NEGATIVE, Urine Cocaine Screen NEGATIVE, Urine Cannabinoids Screen POSITIVEH 01/03/18 04:27: White Blood Count 15.0H, Red Blood Count 2.94L, Hemoglobin 9.4#L, Hematocrit 28L , Mean Corpuscular Volume 94, Mean Corpuscular Hemoglobin 32, Mean Corpuscular Hemoglobin Concent 34, Red Cell Distribution Width 14.2, Platelet Count 241, Mean Platelet Volume 10.0, Neutrophils (%) (Auto) 72, Lymphocytes (%) (Auto) 17 , Monocytes (%) (Auto) 11, Eosinophils (%) (Auto) 0, Basophils (%) (Auto) 0, Neutrophils # (Auto) 10.8H, Lymphocytes # (Auto) 2.5, Monocytes # (Auto) 1.7H, Eosinophils # (Auto) 0.0, Basophils # (Auto) 0.0 Assessment/Plan Assessment/Plan (1) Normal vaginal delivery Status: Acute Assessment & Plan: - Routine post care - Discussed pain control with patient, encourage ambulation - Breast feeding well (2) Term of female (3) Chorioamnionitis, delivered, current hospitalization Status: Acute Assessment & Plan: - Received Vancomycin for GBS Ppx and Gentamycin x1 - No further fevers, D/c antibiotics today Clinical Quality Measures DVT/VTE Risk/Contraindication: Risk Factor Score Per Nursin RFS Level Per Nursing on Admit: 1=Low/No VTE PPX VENESSA CORONADO MD Jan 03, 2018 12:38
[2018-01-03 16:57] VITALS: BP 105/66
[2018-01-03] MEDS ORDERED: ACETAMINOPHEN 500 MG TAB (TYLENOL) ONE (19:43)
[2018-01-03] MEDS ORDERED: ACETAMINOPHEN 500 MG TAB (TYLENOL) PO PRN (19:45)
[2018-01-03 22:56] VITALS: BP 91/56
[2018-01-04 05:07] VITALS: BP 113/74
[2018-01-04] MEDS: IBUPROFEN 600 MG (MOTRIN) TAB PO SCH (05:07)
[2018-01-04 09:15] VITALS: BP 91/52
--- NOTE | 2018-01-04 11:11 | Discharge Summary ---
Diagnosis/Chief Complaint Date of Admission Jan 02, 2018 at 7:40 am Date of Discharge 01/04/18 Admission Diagnosis Admission Diagnosis Term Labor Discharge Diagnosis Female Chorioamnionitis Chief Complaint/HPI Chief Complaint/HPI 22 yo G1 now P1 that delivered female via complicated with GBS + and Chorioamnionitis Discharge Summary-Simple/Stand Procedures Discharge Physical Examination Allergies: Coded Allergies: Sulfa (Sulfonamide Antibiotics) (Verified Allergy, Unknown, HIVES, ) penicillin V (Verified Allergy, Unknown, 01/02/18) Vitals & I&Os Vital Sign - Last 12Hours Date Time Temp Pulse Resp B/P (MAP) Pulse Ox O2 Delivery O2 Flow Rate FiO2 01/04/18 05:07 98.5 63 18 113/74 (87) 99 Room Air General Appearance: Alert, Oriented X3, Cooperative, No Acute Distress HEENT: Atraumatic, Mucous Memb Moist/[place] Respiratory: Clear to Auscultation, Normal Air Movement Cardiovascular: Regular Rate, No Murmurs Abdominal: Normal Bowel Sounds, Soft, No Tenderness, No Masses, Other (firm fundus below umbilicus) Extremities: No Edema, No Tenderness/Swelling Skin: No Rashes Neuro: Strength at 5/5 X4 Ext, Sensation Intact, Cranial Nerves 3-12 NL Psych/Mental Status: Mental Status NL, Mood NL Hospital Course See final discharge diagnosis. Discussion & Recommendations 22 yo G1 now P1 mother that delivered female infant via complicated with chorioamnionitis and GBS + adequately treated with Vancomycin due to PCN allergy. Mother received Gentamycin 1 hr prior to delivery of infant Discharge Condition at discharge stable Instructions to patient/family Please see electronic discharge instructions given to patient. Discharge Medications Reviewed and agree with Discharge Medication list on patient's Discharge Instruction sheet Clinical Quality Measures DVT/VTE Risk/Contraindication: Risk Factor Score Per Nursin RFS Level Per Nursing on Admit: 1=Low/No VTE PPX Copy Copies To 1: YOMI HILL MD, HOLLY R MD Jan 04, 2018 11:11
[2018-01-04] MEDS ORDERED: IBUP-844 PO (11:12)
--- NOTE | 2018-01-04 11:13 | Discharge Instructions ---
Discharge Inst-Women's Serv Depart Medications New, Converted or Re-Newed RX: Transmitted to Pharmacy New Medications: Ibuprofen (Ibu) 600 Mg Tablet 600 MG PO Q6H, #60 TAB Continued Medications: Vit No.124/Iron/FA ( Vitamin Tablet) 1 Each Tablet 1 EACH PO DAILY, TAB Ranitidine HCl (Ranitidine HCl) 150 Mg Tablet 150 MG PO BID, TAB Follow Up/Instructions Goal/Follow Up: [address] Christopher Activity Activity: Activity as Tolerated Driving Instructions: You May Drive NO SMOKING: NO SMOKING Nothing Inside Vagina: No Douching, No [place], No Tampons Diet Discharge Diet: No Restrictions Symptoms to Report to : Bleeding Excessive, Fever Over 101 Degrees F For Any Problems or Questions: Contact Your Physician Copies To 1: YOMI CHRISTOPHER MD, HOLLY R MD Jan 04, 2018 11:13 am
== END 2018-01-04 14:00 | disposition home or self-care (01) | DRG 805 ==
LOC: WSo 05:31 → LDRP 05:32 → WSo 07:40 → LDRP 07:40
PROVIDERS: ADMIT Family Medicine; ATTEND Family Medicine
PROC: 10E0XZZ Delivery of Products of Conception, External Approach (ICD-10-PCS; principal; 2018-01-02)
PROC: 0UQMXZZ Repair Vulva, External Approach (ICD-10-PCS; 2018-01-02)
DX: O71.82 Other specified trauma to perineum and vulva (principal); O99.824 Streptococcus B carrier state complicating childbirth; O69.81X0 Labor and delivery complicated by cord around neck, without compression, not applicable or unspecified; O41.1230 Chorioamnionitis, third trimester, not applicable or unspecified; O99.62 Diseases of the digestive system complicating childbirth; K21.9 Gastro-esophageal reflux disease without esophagitis; Z37.0 Single live birth; Z3A.39 39 weeks gestation of pregnancy
CPT/HCPCS: 36415; 80306; 85007; 85025; 85027; 86850; 86900; 86901; 88307; 99212